=== PATIENT | male | born 1985 | race Two or more races ===

== ENCOUNTER 2016-10-02 08:50 | Emergency (ER) | payer OTHER ==
[~2016-10-02] VITALS: Ht 180.3 cm; Wt 86.2 kg
[~2016-10-02 08:50] MED LIST: CIPRO500 MG PO; METRONIDAZOLE250 MG PO; NKM; VICODIN 5-5001 EACH PO
[2016-10-02 08:54] VITALS: BP 134/88
[2016-10-02] MEDS ORDERED: ATIVAN0.5 MG ORAL (09:11)
[2016-10-02] MEDS ORDERED: LORazepam 1mg tab ORAL ONE (09:15)
--- NOTE | 2016-10-02 10:22 | Emergency Room Report ---
History of Present Illness General Chief Complaint: General Complaint Source: Patient Present Illness HPI 31YOM walk-in with "severe anxiety" for 2 days d/t "court dates, money issues." States "feels warm all over." Endorses abruptly stopping ETOH 5 days ago. used to drink multiple beers each day. Denies drug use. Denies other medical problems. Denies chest pain, SOB Denies other psych diagnoses. Denies SI, HI, AVH Allergies: Coded Allergies: No Known Allergies (Unverified , 03/01/12) Patient History Past Medical History: none Past Surgical History: none Pertinent Family History: none Social History: Denies: alcohol use, drug use, smoking Immunizations: UTD Reviewed Nursing Documentation: PMH: Agreed, PSxH: Agreed Nursing Documentation-PMH Past Medical History: No History, Except For History Of Psychiatric Problem: Yes - anxiety Review of Systems All Other Systems: negative except mentioned in HPI Physical Exam Vital Signs Date Time Temp Pulse Resp B/P Pulse Ox O2 Delivery O2 Flow Rate FiO2 10/02/16 08:54 97.5 76 20 134/88 98 Room Air Sp02 EP Interpretation: reviewed, normal General Appearance: normal inspection, well appearing, no apparent distress, alert, GCS 15, non-toxic Head: normocephalic, atraumatic Eyes: bilateral eye EOMI, bilateral eye PERRL ENT: normal ENT inspection, hearing grossly normal, normal voice Neck: normal inspection, full range of motion, supple, no bony tend Respiratory: normal inspection, lungs clear, normal breath sounds, no respiratory distress, no retraction, no wheezing Cardiovascular #1: regular rate, rhythm, no edema Gastrointestinal: normal inspection, normal bowel sounds, non tender, soft, no guarding, no hernia Genitourinary: no CVA tenderness Musculoskeletal: normal inspection, back normal, normal range of motion, Sandie' s Sign negative Neurologic: normal inspection, alert, oriented x3, responsive, certified industrial hygienist III-XII nml as tested, motor strength/tone normal, speech normal, other - No extremity tremors. No tongue fasiculations Psychiatric: normal inspection, judgement/insight normal, mood/affect normal Skin: normal inspection, normal color, no rash Medical Decision Making Diagnostic Impression: Primary Impression: Anxiety ER Course Anxiety - Undiagnosed Psych disorder? No SI, HI, AVH - possibly related to abrupt cessation of heavy ETOH - Had long discussion with patient on his need to followup with Psych - doesnt have PMD so was given outpatient [facility] walk-in info - Patient was given ativan here - stated his girlfriend was driving. Then RN told me he refused to take it, "felt scared" and said he was driving. Was DCed but then patient was seen in another room with his step-daughter who was also patient in ED, laughing, interacting, no acute distress - As such, very low suspicion for acute ETOH withdrawal at this time. In additional Vitals are stable. No tremors or fasiculations. No AMS. DC with short course of ativan Last Vital Signs Date Time Temp Pulse Resp B/P Pulse Ox O2 Delivery O2 Flow Rate FiO2 10/02/16 09:28 97.5 76 20 134/88 98 Room Air Status: improved Disposition: HOME, SELF-CARE Condition: Improved Scripts Lorazepam* (ATIVAN*) 0.5 Mg Tablet 0.5 MG ORAL BID for 7 Days, #14 TAB Prov: JUSTO BIRD M.D. 10/02/16 Referrals: NON PHYSICIAN (PCP) Patient Instructions: Panic Attacks, [id number], Alcohol Withdrawal Additional Instructions: - Take ativan up to twice a day as needed for anxiety, tremors, shaking - If tremors, anxiety get severe despite medication, go to nearest ER for treatment for withdrawal - Followup at walk-in Psych clinic at [place] JUSTO BIRD M.D. Oct 02, 2016 10:22
== END 2016-10-02 10:15 | disposition home or self-care (01) ==
LOC: EMR 09:28
DX: F41.9 Anxiety disorder, unspecified (principal); F10.10 Alcohol abuse, uncomplicated
CPT/HCPCS: 99283

== ENCOUNTER 2017-04-23 10:56 | Inpatient (IN) | payer MEDICAID, OTHER ==
[~2017-04-23] VITALS: Ht 180.3 cm; Wt 85.3 kg
[~2017-04-23 10:56] MED LIST changes: +ATIVAN0.5 MG ORAL
[2017-04-23] MEDS ORDERED: Lidocaine 2% Visc 15ml soln ORAL ONE (11:30)
[2017-04-23] MEDS ORDERED: Dicyclomine HCl 10mg/5ml oral soln ORAL ONE (11:30)
[2017-04-23 11:38] VITALS: BP 129/86
[2017-04-23 12:37] VITALS: BP 133/85
--- NOTE | 2017-04-23 13:17 | Diagnostic Imaging Report ---
Indication: Abdominal pain Technique: XRAY Abdomen 2v Comparison: Correlation made to CT of the abdomen and pelvis 03/01/2012. Findings: No definite evidence of free intraperitoneal air on upright view There is distention of multiple colonic loops with some measuring up to 7.5 cm in diameter. Somewhat tram tracking appearance along the wall of multiple colonic loops is noted and intramural gas/pneumatosis cannot entirely be excluded. No acute osseous abnormality seen. Impression: Abnormal distention of colonic loops with question of intramural gas/pneumatosis. Further evaluation with CT of the abdomen/pelvis is recommended. This was discussed with treating ER physician Dr. Ochoa at approximately 13:00 on 04/23/17.
[2017-04-23 14:24] LABS: APPEARANCE,URINE SLIGHTLY CLOUDY; BILIRUBIN, URINE NEGATIVE (NEGATIVE); GLUCOSE, URINE (UA) NEGATIVE (NEGATIVE); KETONES,URINE 4+ (NEGATIVE); LEUKOCYTE ESTERASE ,URINE 3+ (NEGATIVE); NITRITE,URINE NEGATIVE (NEGATIVE); PH,URINE 5 (4.5-8.0); PROTEIN,URINE 3+ (NEGATIVE); UROBILINOGEN,URINE NORMAL MG/DL (0.0-1.0)
[2017-04-23 14:34] LABS: COLOR,URINE YELLOW
[2017-04-23] MEDS ORDERED: Morphine Sulfate 4mg/ml Inj IVP ONE ×2 (14:45→18:00)
[2017-04-23] MEDS ORDERED: Ampicillin/Sulbactam Sod 3 GM in NS 110 ML IVPB ONE (15:15)
[2017-04-23 15:22] LABS: BASOPHILS % (AUTO) 0.3 % (0.0-2.0); EOSINOPHILS % (AUTO) 0.3 % (0.0-3.0); HEMATOCRIT 50.4 % (42.0-52.0); HEMOGLOBIN 17.4 G/DL (14.2-18.0); LYMPHOCYTES % (AUTO) 15.5 % (20.0-45.0); MEAN CORPUSCULAR VOLUME 93 FL (80-99); MONOCYTES % (AUTO) 4.6 % (1.0-10.0); NEUTROPHILS % (AUTO) 79.3 % (45.0-75.0); PLATELET COUNT 319 K/UL (150-450); RED BLOOD COUNT 5.44 M/UL (4.70-6.10); RED CELL DISTRIBUTION WIDTH 11.6 % (11.6-14.8); WHITE BLOOD COUNT 11.8 K/UL (4.8-10.8)
[2017-04-23 15:33] LABS: ANION GAP 14 mmol/L (5-15); BLOOD UREA NITROGEN 14 mg/dL (7-18); CALCIUM 9.6 MG/DL (8.5-10.1); CARBON DIOXIDE 24 MMOL/L (21-32); CHLORIDE 102 MMOL/L (98-107); CREATININE 0.9 MG/DL (0.55-1.30); POTASSIUM 3.8 MMOL/L (3.5-5.1); SODIUM 139 MMOL/L (136-145)
[2017-04-23] MEDS ORDERED: Unasyn 3gm Inj ONE (15:36)
[2017-04-23 15:38] LABS: ALANINE AMINOTRANSFERASE 27 U/L (12-78); ALBUMIN 4.2 G/DL (3.4-5.0); ALBUMIN/GLOBULIN RATIO 0.8 (1.0-2.7); ALKALINE PHOSPHATASE 103 U/L (46-116); ASPARTATE AMINO TRANSFERASE 24 U/L (15-37); BILIRUBIN,TOTAL 0.8 MG/DL (0.2-1.0)
--- NOTE | 2017-04-23 16:11 | Emergency Room Report ---
History of Present Illness General Chief Complaint: Abdominal Pain Source: Patient Present Illness HPI Patient is a 32-year-old male brought in by self after increased abdominal discomfort and distention. Patient was having increased gurgling sensation to his upper abdomen he reports having multiple episodes of vomiting. He reports having several small blood streaks in the emesis this morning. The patient had reportedly had a bowel movement this morning. He denied any bloody stool he reported having dark stool several weeks ago Allergies: Coded Allergies: ACETAMINOPHEN (Verified Allergy, Unknown, 04/23/17) Patient History Past Medical History: see triage record Reviewed Nursing Documentation: PMH: Agreed, PSxH: Agreed Nursing Documentation-PMH Past Medical History: No Stated History Review of Systems All Other Systems: negative except mentioned in HPI Physical Exam Vital Signs Date Time Temp Pulse Resp B/P (MAP) Pulse Ox O2 Delivery O2 Flow Rate FiO2 04/23/17 11:05 98.6 84 16 128/91 97 Room Air Sp02 EP Interpretation: reviewed, normal General Appearance: normal inspection, alert, GCS 15, moderate distress Head: atraumatic ENT: normal ENT inspection, hearing grossly normal, normal voice Neck: normal inspection, full range of motion, supple, no bony tend Respiratory: normal inspection, lungs clear, normal breath sounds, no respiratory distress, no retraction, no wheezing Cardiovascular #1: regular rate, rhythm, no edema Gastrointestinal: soft, distended Genitourinary: no CVA tenderness Musculoskeletal: normal inspection, back normal, normal range of motion Neurologic: normal inspection, alert, oriented x3, responsive, specialty foods cook III-XII nml as tested, motor strength/tone normal, speech normal Psychiatric: normal inspection, judgement/insight normal, mood/affect normal Skin: normal inspection, normal color, no rash Medical Decision Making Diagnostic Impression: Primary Impression: Abdominal pain Additional Impression: Bowel obstruction ER Course Patient presented for abdominal pain. Differential diagnoses included ischemic bowel, appendicitis, perforated viscus, abdominal aortic aneurysm, inferior myocardial infarction, viral gastroenteritis Because of complexity of patient's case laboratory testing and imaging studies were ordered.Laboratory testing showed normal white blood count. Patient was noted to have abdominal series with possible bowel obstruction and possible intestinal pneumatosis. CT the abdomen pelvis was ordered. Dr. Rodo Dockery was contacted for inpatient management. Dr. Salinas was contacted for inpatient surgical consult. Labs Test 04/23/17 11:24 White Blood Count 11.8 K/UL (4.8-10.8) Red Blood Count 5.44 M/UL (4.70-6.10) Hemoglobin 17.4 G/DL (14.2-18.0) Hematocrit 50.4 % (42.0-52.0) Mean Corpuscular Volume 93 FL (80-99) Mean Corpuscular Hemoglobin 32.1 PG (27.0-31.0) Mean Corpuscular Hemoglobin Concent 34.6 G/DL (32.0-36.0) Red Cell Distribution Width 11.6 % (11.6-14.8) Platelet Count 319 K/UL (150-450) Mean Platelet Volume 6.9 FL (6.5-10.1) Neutrophils (%) (Auto) 79.3 % (45.0-75.0) Lymphocytes (%) (Auto) 15.5 % (20.0-45.0) Monocytes (%) (Auto) 4.6 % (1.0-10.0) Eosinophils (%) (Auto) 0.3 % (0.0-3.0) Basophils (%) (Auto) 0.3 % (0.0-2.0) Prothrombin Time 10.2 SEC (9.30-11.50) Prothromb Time International Ratio 1.0 (0.9-1.1) Activated Partial Thromboplast Time 28 SEC (23-33) Urine Color Yellow Urine Appearance Slightly cloudy Urine pH 5 (4.5-8.0) Urine Specific [place] 1.025 (1.005-1.035) Urine Protein 3+ (NEGATIVE) Urine Glucose (UA) Negative (NEGATIVE) Urine Ketones 4+ (NEGATIVE) Urine Occult Blood 5+ (NEGATIVE) Urine Nitrite Negative (NEGATIVE) Urine Bilirubin Negative (NEGATIVE) Urine Urobilinogen Normal MG/DL (0.0-1.0) Urine Leukocyte Esterase 3+ (NEGATIVE) Urine RBC 5-10 /HPF (0 - 0) Urine WBC 40-60 /HPF (0 - 0) Urine Squamous Epithelial Cells Occasional /LPF Urine Bacteria Few /HPF (NONE) Sodium Level 139 MMOL/L (136-145) Potassium Level 3.8 MMOL/L (3.5-5.1) Chloride Level 102 MMOL/L (98-107) Carbon Dioxide Level 24 MMOL/L (21-32) Anion Gap 14 mmol/L (5-15) Blood Urea Nitrogen 14 mg/dL (7-18) Creatinine 0.9 MG/DL (0.55-1.30) Estimat Glomerular Filtration Rate > 60 mL/min (>60) Glucose Level 101 MG/DL (74-106) Calcium Level 9.6 MG/DL (8.5-10.1) Total Bilirubin 0.8 MG/DL (0.2-1.0) Aspartate Amino Transf (AST/SGOT) 24 U/L (15-37) Alanine Aminotransferase (ALT/SGPT) 27 U/L (12-78) Alkaline Phosphatase 103 U/L (46-116) Troponin I 0.000 ng/mL (0.000-0.056) Total Protein 9.7 G/DL (6.4-8.2) Albumin 4.2 G/DL (3.4-5.0) Globulin 5.5 g/dL Albumin/Globulin Ratio 0.8 (1.0-2.7) Lipase 123 U/L (73-393) Urine Opiates Screen Negative (NEGATIVE) Urine Barbiturates Screen Negative (NEGATIVE) Phencyclidine (PCP) Screen Negative (NEGATIVE) Urine Amphetamines Screen Negative (NEGATIVE) Urine Benzodiazepines Screen Negative (NEGATIVE) Urine Cocaine Screen Negative (NEGATIVE) Urine Marijuana (THC) Screen Negative (NEGATIVE) Last Vital Signs Date Time Temp Pulse Resp B/P (MAP) Pulse Ox O2 Delivery O2 Flow Rate FiO2 04/23/17 12:37 72 16 133/85 100 Room Air 04/23/17 11:05 98.6 Status: unchanged Disposition: ADMITTED INPATIENT Condition: Serious Referrals: NOT CHOSEN IPA/,REFERRING (PCP) Phillip Ochoa Apr 23, 2017 16:11
--- NOTE | 2017-04-23 16:46 | Consultation ---
History of Present Illness General Date patient seen: Apr 23, 2017 Chief Complaint: Abdominal Pain Reason for Consultation: abd pain Present Illness HPI 32M otherwise healthy began to note some vague abdominal cramping 1-2 weeks ago. states he had intermittent cramping and would note some intermittent abdominal distention, flatus, and bowel sounds as it would resolved. cramping acutely worsened 1-2 days ago and was associated with nausea and blood tinged emesis. acute pain described as 9/10 cramping generalized pain without radiation. does note distention. has been having lots of foul smelling flatus and diarrhea since onset. came to ED for evaluation. KUB performed and demonstrated bowel distention. CT ordered. labs okay. Allergies: Coded Allergies: ACETAMINOPHEN (Verified Allergy, Unknown, 04/23/17) Medication History Scheduled Ciprofloxacin* (Cipro*), 500 MG PO BID Hydrocodone/Acetaminophen 5-500 (Vicodin 5-500), 1 TAB PO Q8H Lorazepam* (Ativan*), 0.5 MG ORAL BID Metronidazole* (Flagyl*), 250 MG PO TID No Known Medications* (NKM - No Known Medications*), 0 ., (Reported) No Known Medications* (NKM - No Known Medications*), 0 ., (Reported) Patient History History Provided By: Patient Healthcare decision maker Resuscitation status Advanced Directive on File Past Medical/Surgical History Past Medical/Surgical History: (1) Anxiety (2) Bowel obstruction (3) Abdominal pain Review of Systems Constitutional: Denies: no symptoms, see HPI, chills, sweats, fever, malaise, weakness, other Eye: Denies: no symptoms, see HPI, eye pain, blurred vision, tearing, double vision, nose pain, nose congestion, acuity changes, discharge, other ENT: Denies: no symptoms, see HPI, ear pain, ear discharge, nose pain, nose congestion, throat pain, throat swelling, mouth pain, hearing loss, nasal discharge, other Cardiovascular: Denies: no symptoms, see HPI, chest pain, edema, palpitations, syncope, PND, other Gastrointestinal: Reports: abdominal pain, diarrhea, nausea, vomiting Genitourinary: Denies: no symptoms, see HPI, discharge, dysuria, frequency, hematuria, pain, retention, incontinence, urgency, vag bleed/dc, other Musculoskeletal: Denies: no symptoms, see HPI, back pain, gout, joint pain, joint swelling, muscle pain, muscle stiffness, other Skin: Denies: no symptoms, see HPI, rash, change in color, change in hair/nails , dryness, lesions, other Psychiatric: Denies: no symptoms, see HPI, prior hx, anxiety, depressed feelings, emotional problems, SI, HI, hallucinations, other Neurological: Denies: no symptoms, see HPI, headache, numbness, paresthesia, seizure, tingling, tremors, focal weakness, syncope, dizziness, other Endocrine: Denies: no symptoms, see HPI, excessive sweating, flushing, intolerance to temperature, increased thirst, increased urine, unexplained weight loss, other Hematologic/Lymphatic: Denies: no symptoms, see HPI, anemia, blood clots, easy bleeding, easy bruising, swollen glands, diathesis, other Physical Exam General Appearance: WD/WN, no apparent distress, alert Lines, tubes and drains: peripheral HEENT: normocephalic, atraumatic, mucous membranes moist, PERRL Neck: supple, normal inspection Respiratory/Chest: lungs clear, normal breath sounds, no respiratory distress, no accessory muscle use Cardiovascular/Chest: normal peripheral pulses, normal rate, regular rhythm Abdomen: normal bowel sounds, soft, no organomegaly, no mass, distended, tender , other - soft, distended, minimal tenderess described as discomfort, no rebound , no guarding, no hernias. Extremities: normal inspection Skin Exam: normal pigmentation, warm/dry Neurologic: alert, oriented x 3, responsive Last 24 Hour Vital Signs Date Time Temp Pulse Resp B/P (MAP) Pulse Ox O2 Delivery O2 Flow Rate FiO2 04/23/17 12:37 72 16 133/85 100 Room Air 04/23/17 11:38 78 27 129/86 98 Room Air 04/23/17 11:05 98.6 84 16 128/91 97 Room Air Laboratory Tests Test 04/23/17 11:24 White Blood Count 11.8 K/UL (4.8-10.8) H Red Blood Count 5.44 M/UL (4.70-6.10) Hemoglobin 17.4 G/DL (14.2-18.0) Hematocrit 50.4 % (42.0-52.0) Mean Corpuscular Volume 93 FL (80-99) Mean Corpuscular Hemoglobin 32.1 PG (27.0-31.0) H Mean Corpuscular Hemoglobin Concent 34.6 G/DL (32.0-36.0) Red Cell Distribution Width 11.6 % (11.6-14.8) Platelet Count 319 K/UL (150-450) Mean Platelet Volume 6.9 FL (6.5-10.1) Neutrophils (%) (Auto) 79.3 % (45.0-75.0) H Lymphocytes (%) (Auto) 15.5 % (20.0-45.0) L Monocytes (%) (Auto) 4.6 % (1.0-10.0) Eosinophils (%) (Auto) 0.3 % (0.0-3.0) Basophils (%) (Auto) 0.3 % (0.0-2.0) Prothrombin Time 10.2 SEC (9.30-11.50) Prothromb Time International Ratio 1.0 (0.9-1.1) Activated Partial Thromboplast Time 28 SEC (23-33) Urine Color Yellow Urine Appearance Slightly cloudy Urine pH 5 (4.5-8.0) Urine Specific [place] 1.025 (1.005-1.035) Urine Protein 3+ (NEGATIVE) H Urine Glucose (UA) Negative (NEGATIVE) Urine Ketones 4+ (NEGATIVE) H Urine Occult Blood 5+ (NEGATIVE) H Urine Nitrite Negative (NEGATIVE) Urine Bilirubin Negative (NEGATIVE) Urine Urobilinogen Normal MG/DL (0.0-1.0) Urine Leukocyte Esterase 3+ (NEGATIVE) H Urine RBC 5-10 /HPF (0 - 0) H Urine WBC 40-60 /HPF (0 - 0) H Urine Squamous Epithelial Cells Occasional /LPF Urine Bacteria Few /HPF (NONE) Sodium Level 139 MMOL/L (136-145) Potassium Level 3.8 MMOL/L (3.5-5.1) Chloride Level 102 MMOL/L (98-107) Carbon Dioxide Level 24 MMOL/L (21-32) Anion Gap 14 mmol/L (5-15) Blood Urea Nitrogen 14 mg/dL (7-18) Creatinine 0.9 MG/DL (0.55-1.30) Estimat Glomerular Filtration Rate > 60 mL/min (>60) Glucose Level 101 MG/DL (74-106) Calcium Level 9.6 MG/DL (8.5-10.1) Total Bilirubin 0.8 MG/DL (0.2-1.0) Aspartate Amino Transf (AST/SGOT) 24 U/L (15-37) Alanine Aminotransferase (ALT/SGPT) 27 U/L (12-78) Alkaline Phosphatase 103 U/L (46-116) Troponin I 0.000 ng/mL (0.000-0.056) Total Protein 9.7 G/DL (6.4-8.2) H Albumin 4.2 G/DL (3.4-5.0) Globulin 5.5 g/dL Albumin/Globulin Ratio 0.8 (1.0-2.7) L Lipase 123 U/L (73-393) Urine Opiates Screen Negative (NEGATIVE) Urine Barbiturates Screen Negative (NEGATIVE) Phencyclidine (PCP) Screen Negative (NEGATIVE) Urine Amphetamines Screen Negative (NEGATIVE) Urine Benzodiazepines Screen Negative (NEGATIVE) Urine Cocaine Screen Negative (NEGATIVE) Urine Marijuana (THC) Screen Negative (NEGATIVE) Height (Feet): 5 Height (Inches): 11.00 Weight (Pounds): 188 Assessment/Plan Problem List: (1) Abdominal pain Assessment & Plan: 32M with abdominal pain, nausea, emesis, diarrhea. afebrile , HD stable, labs okay. on exam distended with some mild cramping discomfort but no acute abdomen. KUB reviewed. CT ordered. possible colitis, enteritis, bowel obstruction, intussusception, or even volvulus. currently stable -pending final CT read -npo -iv fluids -iv abx -trend labs -will follow with recs -thank you for this consultation. ICD Codes: R10.9 - Unspecified abdominal pain SNOMED: [id number] Qualifiers: Qualified Codes: R10.84 - Generalized abdominal pain Status: stable BradHany Apr 23, 2017 16:45
[2017-04-23 17:36] VITALS: BP 132/85
[2017-04-23 19:45] VITALS: BP 128/90
[2017-04-23] MEDS ORDERED: Morphine Sulfate 4mg/ml Inj IVP PRN (20:15)
[2017-04-23] MEDS: D5 1/2NS w/KCl 30mEq 1000ml 1,000 ML IV SCH (20:33)
[2017-04-23] MEDS: Morphine Sulfate 10mg/ml Inj IVP PRN (20:34)
[2017-04-23] MEDS: Heparin 5000 units/ml inj SUBQ SCH (21:00)
[2017-04-24] VITALS (10 sets, daily range): BP systolic 99–127; BP diastolic 55–85
[2017-04-24] MEDS: D5 1/2NS w/KCl 30mEq 1000ml 1,000 ML IV SCH ×4 (03:26→21:30)
[2017-04-24] MEDS: Morphine Sulfate 10mg/ml Inj IVP PRN (03:27)
[2017-04-24] MEDS ORDERED: Propofol 200mg/20ml IV ONE (09:00)
[2017-04-24] MEDS ORDERED: NS 500ML ONE (09:00)
[2017-04-24] MEDS ORDERED: Lidocaine 1% MPF 10mg/ml 5ml ONE (09:00)
[2017-04-24] MEDS: Heparin 5000 units/ml inj SUBQ SCH ×2 (09:25→21:29)
[2017-04-24 10:13] LABS: BASOPHILS % (AUTO) 0.8 % (0.0-2.0); EOSINOPHILS % (AUTO) 0.2 % (0.0-3.0); HEMOGLOBIN 15.6 G/DL (14.2-18.0); LYMPHOCYTES % (AUTO) 18.5 % (20.0-45.0); MEAN CORPUSCULAR VOLUME 93 FL (80-99); MONOCYTES % (AUTO) 9.3 % (1.0-10.0); NEUTROPHILS % (AUTO) 71.3 % (45.0-75.0); PLATELET COUNT 326 K/UL (150-450); RED BLOOD COUNT 4.74 M/UL (4.70-6.10); RED CELL DISTRIBUTION WIDTH 11.6 % (11.6-14.8); WHITE BLOOD COUNT 11.2 K/UL (4.8-10.8)
--- NOTE | 2017-04-24 10:20 | Anethesia Preoperative Eval ---
Anesthesia Pre-op PMH/ROS General Date of Evaluation: Apr 24, 2017 Time of Evaluation: 10:17 Anesthesiologist: tiffanie ASA Score: ASA 2 Mallampati Score Class I : Soft palate, uvula, fauces, pillars visible Class II: Soft palate, uvula, fauces visible Class III: Soft palate, base of uvula visible Class IV: Only hard plate visible Mallampati Classification: Class II Surgeon: harinder Surgical Procedure: flexible sigmoidoscopy Anesthesia History: none Social History: current smoker Family History: no anesthesia problems Allergies: Coded Allergies: ACETAMINOPHEN (Verified Allergy, Unknown, 04/23/17) Medications: see eMAR Anesthesia Pre-op Phys. Exam Physician Exam Last Vital Signs Date Time Temp Pulse Resp B/P (MAP) Pulse Ox O2 Delivery O2 Flow Rate FiO2 04/24/17 08:00 97.3 63 18 112/71 97 04/24/17 04:52 Room Air Constitutional: NAD Neurologic: CN 2-12 intact Cardiovascular: RRR Respiratory: CTA Gastrointestinal: S/NT/ND Airway Exam Mallampati Score: Class II MO: full Neck: supple TMD: 2fb ROM: full Teeth: broken Anesthesia Pre-op A/P Labs Hematology Test 04/23/17 11:24 04/24/17 09:30 White Blood Count 11.8 K/UL (4.8-10.8) H 11.2 K/UL (4.8-10.8) H Red Blood Count 5.44 M/UL (4.70-6.10) 4.74 M/UL (4.70-6.10) Hemoglobin 17.4 G/DL (14.2-18.0) 15.6 G/DL (14.2-18.0) Hematocrit 50.4 % (42.0-52.0) 44.0 % (42.0-52.0) Mean Corpuscular Volume 93 FL (80-99) 93 FL (80-99) Mean Corpuscular Hemoglobin 32.1 PG (27.0-31.0) H 32.9 PG (27.0-31.0) H Mean Corpuscular Hemoglobin Concent 34.6 G/DL (32.0-36.0) 35.5 G/DL (32.0-36.0) Red Cell Distribution Width 11.6 % (11.6-14.8) 11.6 % (11.6-14.8) Platelet Count 319 K/UL (150-450) 326 K/UL (150-450) Mean Platelet Volume 6.9 FL (6.5-10.1) 7.4 FL (6.5-10.1) Neutrophils (%) (Auto) 79.3 % (45.0-75.0) H 71.3 % (45.0-75.0) Lymphocytes (%) (Auto) 15.5 % (20.0-45.0) L 18.5 % (20.0-45.0) L Monocytes (%) (Auto) 4.6 % (1.0-10.0) 9.3 % (1.0-10.0) Eosinophils (%) (Auto) 0.3 % (0.0-3.0) 0.2 % (0.0-3.0) Basophils (%) (Auto) 0.3 % (0.0-2.0) 0.8 % (0.0-2.0) Coagulation Test 04/23/17 11:24 Prothrombin Time 10.2 SEC (9.30-11.50) Prothromb Time International Ratio 1.0 (0.9-1.1) Activated Partial Thromboplast Time 28 SEC (23-33) Chemistry Test 04/23/17 11:24 04/24/17 09:30 Sodium Level 139 MMOL/L (136-145) Pending Potassium Level 3.8 MMOL/L (3.5-5.1) Pending Chloride Level 102 MMOL/L (98-107) Pending Carbon Dioxide Level 24 MMOL/L (21-32) Pending Anion Gap 14 mmol/L (5-15) Blood Urea Nitrogen 14 mg/dL (7-18) Pending Creatinine 0.9 MG/DL (0.55-1.30) Pending Estimat Glomerular Filtration Rate > 60 mL/min (>60) Pending Glucose Level 101 MG/DL (74-106) Pending Calcium Level 9.6 MG/DL (8.5-10.1) Pending Total Bilirubin 0.8 MG/DL (0.2-1.0) Pending Aspartate Amino Transf (AST/SGOT) 24 U/L (15-37) Pending Alanine Aminotransferase (ALT/SGPT) 27 U/L (12-78) Pending Alkaline Phosphatase 103 U/L (46-116) Pending Troponin I 0.000 ng/mL (0.000-0.056) Total Protein 9.7 G/DL (6.4-8.2) H Pending Albumin 4.2 G/DL (3.4-5.0) Pending Globulin 5.5 g/dL Pending Albumin/Globulin Ratio 0.8 (1.0-2.7) L Lipase 123 U/L (73-393) Risk Assessment & Plan Assessment: asa2 Plan: mac Status Change Before Surgery: No Pre-Antibiotics Drug: YANCI Leung Apr 24, 2017 10:20
[2017-04-24] MEDS ORDERED: fentaNYL 100 mcg/2 mL IV PRN (10:30)
[2017-04-24] MEDS ORDERED: Midazolam 2mg/2ml Inj IVP PRN (10:30)
[2017-04-24] MEDS ORDERED: DiphenhydrAMINE 50mg/ml Inj IVP PRN (10:30)
[2017-04-24] MEDS ORDERED: Atropine Inj 1mg/10ml Syr IV PRN (10:30)
[2017-04-24 10:39] LABS: ALANINE AMINOTRANSFERASE 14 U/L (12-78); ALBUMIN 3.4 G/DL (3.4-5.0); ALBUMIN/GLOBULIN RATIO 0.7 (1.0-2.7); ALKALINE PHOSPHATASE 80 U/L (46-116); ANION GAP 8 mmol/L (5-15); ASPARTATE AMINO TRANSFERASE 16 U/L (15-37); BILIRUBIN,TOTAL 0.6 MG/DL (0.2-1.0); BLOOD UREA NITROGEN 10 mg/dL (7-18); CALCIUM 8.8 MG/DL (8.5-10.1); CARBON DIOXIDE 26 MMOL/L (21-32); CHLORIDE 105 MMOL/L (98-107); POTASSIUM 4.1 MMOL/L (3.5-5.1); SODIUM 139 MMOL/L (136-145)
--- NOTE | 2017-04-24 10:39 | Diagnostic Imaging Report ---
Indication: Elbow pain Technique: CT of the abdomen and pelvis utilizing automated exposure control with intravenous contrast. Venous scanning performed. CT dose: Total DLP 803.09 mGycm; CTDI vol 13.68 mGy Comparison: 03/01/2012 Findings: Dependent atelectasis noted in the lung bases. Heart size within normal limits. No pericardial effusion. Liver and gallbladder are unremarkable in appearance. Hepatic veins and portal veins appear patent. No evidence of portal venous gas. Spleen, adrenal glands and pancreas are unremarkable in appearance. Kidneys enhance symmetrically. No urinary tract stones or hydronephrosis noted bilaterally. Prostate is unremarkable in appearance. There is focal thickening about the superior aspect of the bladder with possible fistulous connection to the colon (series 6 image #37; series 5 images #27). The area of thickening measures approximately 3.5 x 1.2 cm (series 6 image #36). There is no free intraperitoneal air or fluid. There is marked distention of the colon to the level of the rectosigmoid colon where there is focal thickening (series 3 image #78). Appearance raises question for intussusception however mass lesion or other causes of focal thickening are not entirely excludable. The rectum distal to this point is collapsed and of normal caliber. There is no evidence of pneumatosis intestinalis. There is no definite perienteric inflammatory change at this time. There is somewhat fatty contents of stool which may be related to diarrhea or malabsorptive syndrome. There is no small bowel dilatation. Appendix is normal. Abdominal aorta is normal in caliber. No pathologically enlarged abdominal or pelvic lymph nodes are noted. There is an minimal degenerative change of the lumbar spine at L4-L5. No acute osseous abnormality is seen. IMPRESSION: Colonic obstruction to the level of focal thickening at the rectosigmoid colon which may be related to intussusception. Underlying mass lesion or additional etiologies (infectious or inflammatory) for focal thickening not entirely excluded, particularly given the possible fistulous connection to the bladder. Recommend direct visualization with sigmoidoscopy/colonoscopy. No evidence of pneumatosis intestinalis, portal venous gas, or free air at this time. No associated small bowel dilatation/obstruction. Appendix normal. Focal thickening of the bladder which may be secondary to inflammation versus cystitis. Question possible fistulous connection to the colon as detailed above. Given the thickening is focal, the possibility of mass is not entirely excluded. Consider cystogram or cystoscopy. Additional findings as above. This corresponds with the [facility]rad preliminary report. Findings discussed with Dr. Negor of 04/24/2017. The CT scanner at [facility] is accredited by the [employer] [place] [employer] and the scans are performed using protocols designed to limit radiation exposure to as low as reasonably achievable to attain images of sufficient resolution adequate for diagnostic evaluation.
[2017-04-24] MEDS ORDERED: NS 500ML IV ONE (11:19)
--- NOTE | 2017-04-24 11:19 | General Progress Note ---
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 inflammatoy process, ? recto-vesicular fistula - UTI vs fistula Recommendations - NPO - flex sig - may need cystogram - abx - surgical f/u Subjective Allergies: Coded Allergies: ACETAMINOPHEN (Verified Allergy, Unknown, 04/23/17) Objective Last 24 Hour Vital Signs Date Time Temp Pulse Resp B/P (MAP) Pulse Ox O2 Delivery O2 Flow Rate FiO2 04/24/17 08:00 97.3 63 18 112/71 97 04/24/17 04:52 98.2 63 18 127/73 100 Room Air 04/24/17 00:51 98.0 69 19 105/60 100 Room Air 04/23/17 19:45 98.2 73 20 128/90 100 Room Air 04/23/17 18:23 98.6 74 20 132/85 97 Room Air 04/23/17 17:36 74 20 132/85 97 Room Air 04/23/17 12:37 72 16 133/85 100 Room Air 04/23/17 11:38 78 27 129/86 98 Room Air Intake and Output 04/23/17 04/24/17 19:00 07:00 Intake Total 1000 ml 1500 ml Balance 1000 ml 1500 ml Intake IV Total 1000 ml 1500 ml # Voids 1 2 Laboratory Tests 04/23/17 11:24: White Blood Count 11.8H, Red Blood Count 5.44, Hemoglobin 17.4, Hematocrit 50.4 , Mean Corpuscular Volume 93, Mean Corpuscular Hemoglobin 32.1H, Mean Corpuscular Hemoglobin Concent 34.6, Red Cell Distribution Width 11.6, Platelet Count 319, Mean Platelet Volume 6.9, Neutrophils (%) (Auto) 79.3H, Lymphocytes ( %) (Auto) 15.5L, Monocytes (%) (Auto) 4.6, Eosinophils (%) (Auto) 0.3, Basophils (%) (Auto) 0.3, Prothrombin Time 10.2, Prothromb Time International Ratio 1.0, Activated Partial Thromboplast Time 28, Urine Color Yellow, Urine Appearance Slightly cloudy, Urine pH 5, Urine Specific Rougon 1.025, Urine Protein 3+H, Urine Glucose (UA) Negative, Urine Ketones 4+H, Urine Occult Blood 5+H, Urine Nitrite Negative, Urine Bilirubin Negative, Urine Urobilinogen Normal , Urine Leukocyte Esterase 3+H, Urine RBC 5-10H, Urine WBC 40-60H, Urine Squamous Epithelial Cells Occasional, Urine Bacteria Few, Sodium Level 139, Potassium Level 3.8, Chloride Level 102, Carbon Dioxide Level 24, Anion Gap 14, Blood Urea Nitrogen 14, Creatinine 0.9, Estimat Glomerular Filtration Rate > 60 , Glucose Level 101, Calcium Level 9.6, Total Bilirubin 0.8, Aspartate Amino Transf (AST/SGOT) 24, Alanine Aminotransferase (ALT/SGPT) 27, Alkaline Phosphatase 103, Troponin I 0.000, Total Protein 9.7H, Albumin 4.2, Globulin 5.5 , Albumin/Globulin Ratio 0.8L, Lipase 123, Urine Opiates Screen Negative, Urine Barbiturates Screen Negative, Phencyclidine (PCP) Screen Negative, Urine Amphetamines Screen Negative, Urine Benzodiazepines Screen Negative, Urine Cocaine Screen Negative, Urine Marijuana (THC) Screen Negative 04/24/17 09:30: White Blood Count 11.2H, Red Blood Count 4.74, Hemoglobin 15.6, Hematocrit 44.0 , Mean Corpuscular Volume 93, Mean Corpuscular Hemoglobin 32.9H, Mean Corpuscular Hemoglobin Concent 35.5, Red Cell Distribution Width 11.6, Platelet Count 326, Mean Platelet Volume 7.4, Neutrophils (%) (Auto) 71.3, Lymphocytes (% ) (Auto) 18.5L, Monocytes (%) (Auto) 9.3, Eosinophils (%) (Auto) 0.2, Basophils (%) (Auto) 0.8, Sodium Level 139, Potassium Level 4.1, Chloride Level 105, Carbon Dioxide Level 26, Anion Gap 8, Blood Urea Nitrogen 10, Creatinine 1.0, Estimat Glomerular Filtration Rate > 60, Glucose Level 126H, Calcium Level 8.8, Total Bilirubin 0.6, Aspartate Amino Transf (AST/SGOT) 16, Alanine Aminotransferase (ALT/SGPT) 14, Alkaline Phosphatase 80, Total Protein 8.1, Albumin 3.4, Globulin 4.7, Albumin/Globulin Ratio 0.7L Height (Feet): 5 Height (Inches): 11.00 Weight (Pounds): 188 PATRICIOPARIS TSAI Apr 24, 2017 11:19
--- NOTE | 2017-04-24 11:22 | Pre-Procedure Note/Attestation ---
Pre-Procedure Note/Attestation Complete Prior to Procedure Planned Procedure: not applicable Procedure Narrative: flex sig Indications for Procedure Pre-Operative Diagnosis: abnormal CT, abd pain Attestation I attest that I discussed the nature of the procedure; its benefits; risks and complications; and alternatives (and the risks and benefits of such alternatives ), prior to the procedure, with the patient (or the patient's legal loss control representative). I attest that, if there was a reasonable possibility of needing a blood transfusion, the patient (or the patient's legal loss control representative) was given the [facility] standardized written summary, pursuant to the Dwight Bertrand Blood Safety Act ([place] Health and Safety Code # 1645, as amended). I attest that I re-evaluated the patient just prior to the surgery and that there has been no change in the patient's H&P, except as documented below: PARIS RAY Apr 24, 2017 11:22
--- NOTE | 2017-04-24 12:19 | General Progress Note ---
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 inflammatoy process, ? recto-vesicular fistula - UTI vs fistula Recommendations - NPO - flex sig - may need cystogram - abx - surgical f/u Post Procedure: - Sigmoidoscopy to about 30 cm - Difficult exam due to significant anatomical distortion - abrupt "twisted" closure of colonic lumen at this level. Unable to pass. - one possibly ulcerated nodule seen in area of abrupt closure - biopsied ( difficult to reach for biopsy) - Rec: - f/u path (stat result requested) - if path negative --> cytogram vs limited GGE to evaluate the area - Keep NPO - Broad spect abx (Zosyn written) - Surgical f/u Subjective Allergies: Coded Allergies: ACETAMINOPHEN (Verified Allergy, Unknown, 04/23/17) Objective Last 24 Hour Vital Signs Date Time Temp Pulse Resp B/P (MAP) Pulse Ox O2 Delivery O2 Flow Rate FiO2 04/24/17 08:00 97.3 63 18 112/71 97 04/24/17 04:52 98.2 63 18 127/73 100 Room Air 04/24/17 00:51 98.0 69 19 105/60 100 Room Air 04/23/17 19:45 98.2 73 20 128/90 100 Room Air 04/23/17 18:23 98.6 74 20 132/85 97 Room Air 04/23/17 17:36 74 20 132/85 97 Room Air 04/23/17 12:37 72 16 133/85 100 Room Air Intake and Output 04/23/17 04/24/17 19:00 07:00 Intake Total 1000 ml 1500 ml Balance 1000 ml 1500 ml Intake IV Total 1000 ml 1500 ml # Voids 1 2 Laboratory Tests 04/24/17 09:30: White Blood Count 11.2H, Red Blood Count 4.74, Hemoglobin 15.6, Hematocrit 44.0 , Mean Corpuscular Volume 93, Mean Corpuscular Hemoglobin 32.9H, Mean Corpuscular Hemoglobin Concent 35.5, Red Cell Distribution Width 11.6, Platelet Count 326, Mean Platelet Volume 7.4, Neutrophils (%) (Auto) 71.3, Lymphocytes (% ) (Auto) 18.5L, Monocytes (%) (Auto) 9.3, Eosinophils (%) (Auto) 0.2, Basophils (%) (Auto) 0.8, Sodium Level 139, Potassium Level 4.1, Chloride Level 105, Carbon Dioxide Level 26, Anion Gap 8, Blood Urea Nitrogen 10, Creatinine 1.0, Estimat Glomerular Filtration Rate > 60, Glucose Level 126H, Calcium Level 8.8, Total Bilirubin 0.6, Aspartate Amino Transf (AST/SGOT) 16, Alanine Aminotransferase (ALT/SGPT) 14, Alkaline Phosphatase 80, Total Protein 8.1, Albumin 3.4, Globulin 4.7, Albumin/Globulin Ratio 0.7L Height (Feet): 5 Height (Inches): 11.00 Weight (Pounds): 188 PARIS RAY Apr 24, 2017 12:19
--- NOTE | 2017-04-24 12:27 | Immediate Post-Op Evaluation ---
Immediate Post-Op Evalulation Immediate Post-Op Evalulation Procedure: flexible sigmoidoscopy w/ bx Date of Evaluation: Apr 24, 2017 Time of Evaluation: 12:27 IV Fluids: 450ml 0.9ns Blood Products: none Estimated Blood Loss: negligible Blood Pressure Systolic: 101 Blood Pressure Diastolic: 57 Pulse Rate: 63 Respiratory Rate: 18 O2 Sat by Pulse Oximetry: 100 Temperature (Fahrenheit): 98.5 Pain Score (1-10): 0 Nausea: No Vomiting: No Complications none Patient Status: awake, reacts, patent Hydration Status: adequate Drug: YANCI Leung Apr 24, 2017 12:27
--- NOTE | 2017-04-24 12:29 | 48 Hour Post Anesthesia Eval ---
Post Anesthesia Evaluation Procedure: flexible sigmoidoscopy w/ bx Date of Evaluation: Apr 24, 2017 Time of Evaluation: 12:29 Blood Pressure Systolic: 110 0: 73 Pulse Rate: 54 Respiratory Rate: 18 Temperature (Fahrenheit): 98.5 O2 Sat by Pulse Oximetry: 100 Airway: patent Nausea: No Vomiting: No Pain Intensity: 0 Hydration Status: adequate Cardiopulmonary Status: stable Mental Status/LOC: patient returned to baseline Post-Anesthesia Complications: none Follow-up care needed: N/A YANCI SEO Apr 24, 2017 12:29
--- NOTE | 2017-04-24 12:30 | History and Physical Report ---
DATE OF ADMISSION: 04/23/2017 CHIEF COMPLAINT AND REASON FOR HOSPITALIZATION: The patient was admitted with abdominal pain, nausea, and vomiting. HISTORY OF PRESENT ILLNESS: The patient is a 32-year-old man who presents with abdominal pain nausea, and, vomiting. He is seen in the emergency room with the above signs and showed markedly distended loops of colon on KUB with intramural gas and pneumatosis. A CT is pending at the time of my exam. The patient about two weeks ago passed black stool. He has had abdominal pain and gas for the past several weeks. He had diarrhea for the past day and today, he has had nausea, vomiting, and some hematemesis. The patient has not been treated in the past for any bowel problem. Initially, had been in good health. He did have an emergency room visit for anxiety in September 2016. PAST SURGICAL HISTORY: None. MEDICATIONS: No regular medications. He took Mylanta within the last 24 hours. ALLERGIES: None known. SOCIAL HISTORY: He is here with his significant other. 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 Habits, he used marijuana, he says he quit five months ago. Smokes on and off, but not regularly. He was a moderate alcohol drinker, but now says he drinks about 1/6 pack a day at weekends. REVIEW OF SYSTEMS: HEAD EYES, EARS, NOSE, AND THROAT: Vision and hearing are good. ENDOCRINE: No known diabetes or thyroid disease. PULMONARY: No asthma, TB, or chronic cough. CARDIAC: No history of myocardial infarction or palpitations. GASTROINTESTINAL: No known history of ulcers or bowel problems or GI bleeding in the past. Black stools as noted above. GENITOURINARY: He has had dysuria who admittedly within on the last 24 to 48 hours. No known kidney stones. MUSCULOSKELETAL: No history of chronic joint pains. NEUROLOGIC: No CVA, syncope, or seizures. PHYSICAL EXAMINATION: GENERAL: The patient is alert, well-developed man, in no acute distress. VITAL SIGNS: Blood pressure is 133/85, pulse 72, respirations 16, temperature 98.6. HEAD EYES, EARS, NOSE, AND THROAT: Sclerae are nonicteric. Ocular motions intact in all directions. Oral mucosa moist. NECK: No adenopathy or thyroid enlargement. LUNGS: Clear. HEART: Regular rhythm. No murmur. ABDOMEN: Soft and mildly distended. Bowel sounds are diminished. I am unable to see liver or spleen. There is no focal tenderness. EXTREMITIES: No edema, cyanosis, clubbing, or swollen joints. IMPRESSION: The patient presents with large loops of gas-filled colon on KUB and symptoms as above. It is possible that he has an underlying bowel problems or ileus versus bowel obstruction. It is possible he could have underlying inflammatory bowel disease or other source of colitis. It is also he may have underlying megacolon and atonic bowels, although he does not give a history of chronic constipation. There is also a recent history of black stools and he could have underlying peptic ulcer disease. PLAN: We will await the CT scanning and make further assessment and treatment plans after the above. He will be hydrated and given antiulcer treatment. Further orders pending above. Rodo Dockery M.D. DR: Clara JOB#: [id number] CC:
[2017-04-24] MEDS: Piperacillin/Tazobactam 3.375 GM in D5W 110 ML IVPB SCH ×2 (14:00→21:30)
--- NOTE | 2017-04-24 15:11 | General Progress Note ---
Progress Note Progress Note Surgery: patient seen and examined at bedside. no acute events. had colonoscopy today and reviewed findings with GI. area of twisting in colon with obstruction. area of ulceration which could be fistula? to bladder? possible mass. biopsy taken and pending path. patient states he feels okay otherwise. still with mild abd pain. no n/v/f/c. labs reviewed. CT reviewed. etiology unknown but could potentially be perf diverticuli, fistula, cancer, IBD ? unfortunately still with large bowel obstruction from this lesion. will proceed with Barium Enema to evaluate bowel and possible fistula to bladder. will likely need operation in next few days with bowel resection. will follow with recs. NPO IV fluids IV Abx Barium enema Hany Salinas Apr 24, 2017 15:11
--- NOTE | 2017-04-24 15:41 | General Progress Note ---
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 - Other specified disorders of the skin and subcutaneous tissue SNOMED: 812506443 (2) Abdominal pain ICD Codes: R10.9 - Unspecified abdominal pain SNOMED: 47039918 Qualifiers: Qualified Codes: R10.84 - Generalized abdominal pain (3) Bowel obstruction ICD Codes: K56.609 - Unspecified intestinal obstruction, unspecified as to partial versus complete obstruction SNOMED: 52811756 Assessment/Plan gi and surg eval, npo Subjective Constitutional: Reports: weakness HEENT: Reports: no symptoms Cardiovascular: Reports: no symptoms Respiratory: Reports: no symptoms Gastrointestinal/Abdominal: Reports: abdomen distended Genitourinary: Reports: no symptoms Neurologic/Psychiatric: Reports: no symptoms Endocrine: Reports: no symptoms Allergies: Coded Allergies: ACETAMINOPHEN (Verified Allergy, Unknown, 04/23/17) Objective Last 24 Hour Vital Signs Date Time Temp Pulse Resp B/P (MAP) Pulse Ox O2 Delivery O2 Flow Rate FiO2 04/24/17 12:40 98.4 63 18 124/67 100 Room Air 04/24/17 12:35 58 18 114/72 99 Room Air 04/24/17 12:29 54 18 100 04/24/17 12:27 63 18 100 04/24/17 12:25 56 18 110/73 100 Simple Mask 10.0 04/24/17 12:20 65 18 99/55 100 Simple Mask 10.0 04/24/17 12:15 98.5 60 18 101/57 100 Simple Mask 10.0 04/24/17 08:00 97.3 63 18 112/71 97 04/24/17 04:52 98.2 63 18 127/73 100 Room Air 04/24/17 00:51 98.0 69 19 105/60 100 Room Air 04/23/17 19:45 98.2 73 20 128/90 100 Room Air 04/23/17 18:23 98.6 74 20 132/85 97 Room Air 04/23/17 17:36 74 20 132/85 97 Room Air Intake and Output 04/23/17 04/24/17 19:00 07:00 Intake Total 1000 ml 1500 ml Balance 1000 ml 1500 ml Intake IV Total 1000 ml 1500 ml # Voids 1 2 Laboratory Tests 04/24/17 09:30: White Blood Count 11.2H, Red Blood Count 4.74, Hemoglobin 15.6, Hematocrit 44.0 , Mean Corpuscular Volume 93, Mean Corpuscular Hemoglobin 32.9H, Mean Corpuscular Hemoglobin Concent 35.5, Red Cell Distribution Width 11.6, Platelet Count 326, Mean Platelet Volume 7.4, Neutrophils (%) (Auto) 71.3, Lymphocytes (% ) (Auto) 18.5L, Monocytes (%) (Auto) 9.3, Eosinophils (%) (Auto) 0.2, Basophils (%) (Auto) 0.8, Sodium Level 139, Potassium Level 4.1, Chloride Level 105, Carbon Dioxide Level 26, Anion Gap 8, Blood Urea Nitrogen 10, Creatinine 1.0, Estimat Glomerular Filtration Rate > 60, Glucose Level 126H, Calcium Level 8.8, Total Bilirubin 0.6, Aspartate Amino Transf (AST/SGOT) 16, Alanine Aminotransferase (ALT/SGPT) 14, Alkaline Phosphatase 80, Total Protein 8.1, Albumin 3.4, Globulin 4.7, Albumin/Globulin Ratio 0.7L Height (Feet): 5 Height (Inches): 11.00 Weight (Pounds): 188 General Appearance: no apparent distress EENT: normal ENT inspection Neck: normal alignment Cardiovascular: normal rate Respiratory/Chest: lungs clear Abdomen: soft, decreased bowel sounds 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
--- NOTE | 2017-04-24 18:15 | Cardiology Report ---
APPROVED REPORT EKG Measurement Heart [id number] Normal sinus rhythm Normal ECG
[2017-04-25] VITALS (7 sets, daily range): BP systolic 102–134; BP diastolic 59–86
[2017-04-25] MEDS: LORazepam Inj 2mg/ml 1ml IV PRN ×2 (00:43→08:17)
[2017-04-25] MEDS: Piperacillin/Tazobactam 3.375 GM in D5W 110 ML IVPB SCH ×3 (06:16→21:14)
[2017-04-25] MEDS: D5 1/2NS w/KCl 30mEq 1000ml 1,000 ML IV SCH ×4 (06:16→21:21)
[2017-04-25 07:29] LABS: HEMATOCRIT 43.7 % (42.0-52.0); HEMOGLOBIN 15.4 G/DL (14.2-18.0); LYMPHOCYTES % (AUTO) 17.7 % (20.0-45.0); MEAN CORPUSCULAR VOLUME 92 FL (80-99); NEUTROPHILS % (AUTO) 75.3 % (45.0-75.0); PLATELET COUNT 282 K/UL (150-450); RED BLOOD COUNT 4.75 M/UL (4.70-6.10); RED CELL DISTRIBUTION WIDTH 11.1 % (11.6-14.8); WHITE BLOOD COUNT 9.8 K/UL (4.8-10.8)
[2017-04-25 07:30] LABS: BASOPHILS % (AUTO) 0.5 % (0.0-2.0); MONOCYTES % (AUTO) 6.5 % (1.0-10.0)
[2017-04-25 07:53] LABS: ALANINE AMINOTRANSFERASE 19 U/L (12-78); ALBUMIN 3.4 G/DL (3.4-5.0); ALBUMIN/GLOBULIN RATIO 0.7 (1.0-2.7); ALKALINE PHOSPHATASE 79 U/L (46-116); ANION GAP 8 mmol/L (5-15); ASPARTATE AMINO TRANSFERASE 16 U/L (15-37); BILIRUBIN,TOTAL 0.6 MG/DL (0.2-1.0); BLOOD UREA NITROGEN 7 mg/dL (7-18); CALCIUM 8.6 MG/DL (8.5-10.1); CARBON DIOXIDE 26 MMOL/L (21-32); CHLORIDE 101 MMOL/L (98-107); CREATININE 0.9 MG/DL (0.55-1.30); POTASSIUM 3.6 MMOL/L (3.5-5.1); SODIUM 135 MMOL/L (136-145)
[2017-04-25] MEDS: Heparin 5000 units/ml inj SUBQ SCH ×2 (08:23→21:20)
--- NOTE | 2017-04-25 10:56 | General Surgery Progress Note ---
General Surgery-Progress Note Subjective Additional Comments unchanged. had scope yesterday which identified abnormality. pending biopsies. states he has cramping and hyperactive bowel sounds. passing lots of flatus. hungry. Objective Last 24 Hour Vital Signs Date Time Temp Pulse Resp B/P (MAP) Pulse Ox O2 Delivery O2 Flow Rate FiO2 04/25/17 08:00 98.2 72 19 102/59 99 04/25/17 04:00 97.3 65 18 115/73 97 04/25/17 00:01 Room Air 04/25/17 00:00 98.1 63 19 118/80 97 04/24/17 20:01 Room Air 04/24/17 20:00 98.1 69 18 124/85 97 04/24/17 16:00 98.6 68 19 119/85 100 04/24/17 12:40 98.4 63 18 124/67 100 Room Air 04/24/17 12:35 58 18 114/72 99 Room Air 04/24/17 12:29 54 18 100 04/24/17 12:27 63 18 100 04/24/17 12:25 56 18 110/73 100 Simple Mask 10.0 04/24/17 12:20 65 18 99/55 100 Simple Mask 10.0 04/24/17 12:15 98.5 60 18 101/57 100 Simple Mask 10.0 I&O Intake and Output 04/24/17 04/25/17 19:00 07:00 Intake Total 450 ml 1210.0 ml Output Total 200 ml Balance 450 ml 1010.0 ml Intake Oral 200 ml IV Total 450 ml 1010.0 ml Output Emesis 200 ml # Voids 2 Cardiovascular: RSR Respiratory: clear Abdomen: soft, distended, non-tender, present bowel sounds Extremities: no edema Laboratory Tests Test 04/25/17 06:20 White Blood Count 9.8 K/UL (4.8-10.8) Red Blood Count 4.75 M/UL (4.70-6.10) Hemoglobin 15.4 G/DL (14.2-18.0) Hematocrit 43.7 % (42.0-52.0) Mean Corpuscular Volume 92 FL (80-99) Mean Corpuscular Hemoglobin 32.3 PG (27.0-31.0) H Mean Corpuscular Hemoglobin Concent 35.1 G/DL (32.0-36.0) Red Cell Distribution Width 11.1 % (11.6-14.8) L Platelet Count 282 K/UL (150-450) Mean Platelet Volume 7.5 FL (6.5-10.1) Neutrophils (%) (Auto) 75.3 % (45.0-75.0) H Lymphocytes (%) (Auto) 17.7 % (20.0-45.0) L Monocytes (%) (Auto) 6.5 % (1.0-10.0) Eosinophils (%) (Auto) 0.0 % (0.0-3.0) Basophils (%) (Auto) 0.5 % (0.0-2.0) Sodium Level 135 MMOL/L (136-145) L Potassium Level 3.6 MMOL/L (3.5-5.1) Chloride Level 101 MMOL/L (98-107) Carbon Dioxide Level 26 MMOL/L (21-32) Anion Gap 8 mmol/L (5-15) Blood Urea Nitrogen 7 mg/dL (7-18) Creatinine 0.9 MG/DL (0.55-1.30) Estimat Glomerular Filtration Rate > 60 mL/min (>60) Glucose Level 130 MG/DL (74-106) H Calcium Level 8.6 MG/DL (8.5-10.1) Total Bilirubin 0.6 MG/DL (0.2-1.0) Aspartate Amino Transf (AST/SGOT) 16 U/L (15-37) Alanine Aminotransferase (ALT/SGPT) 19 U/L (12-78) Alkaline Phosphatase 79 U/L (46-116) Total Protein 8.2 G/DL (6.4-8.2) Albumin 3.4 G/DL (3.4-5.0) Globulin 4.8 g/dL Albumin/Globulin Ratio 0.7 (1.0-2.7) L Plan Problems: (1) Abdominal pain Assessment & Plan: 32M with abdominal pain, nausea, emesis, diarrhea. afebrile , HD stable, labs okay. on exam distended with some mild cramping discomfort but no acute abdomen. CT reviewed. Colonoscopy reviewed. etiology unknown but was noted to have twisting of bowel at 30cm with ulcerated lesion. pending biopsy. -Barium enema today to evaluate bowel contortion and possible fistula to bladder. -given lesion noted, condition, and large bowel obstruction that is not improving and unable to resolve with colonoscopy will need surgical intervention. once BE completed and reviewed will discuss surgical options and plan with patient. -npo -iv fluids -iv abx -will follow with recs -thank you for this consultation. Hany Salinas Apr 25, 2017 10:56
--- NOTE | 2017-04-25 12:46 | Diagnostic Imaging Report ---
Indication: Colonic obstruction. Concern for intussusception versus mass. Comparison: CT abdomen and pelvis 04/23/2017 Findings: Rectal tube was inserted. Single contrast Gastrografin was administered. There is a focal high-grade stricture that is not completely obstructive involving the sigmoid colon. Some contrast does pass more proximally into dilated loops of colon. There is no intussusception identified. There is no evidence of a colovesical fistula. 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
--- NOTE | 2017-04-25 13:29 | General Progress Note ---
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 - Other specified disorders of the skin and subcutaneous tissue SNOMED: 200536326 (2) Abdominal pain ICD Codes: R10.9 - Unspecified abdominal pain SNOMED: 41746168 Qualifiers: Qualified Codes: R10.84 - Generalized abdominal pain (3) Bowel obstruction ICD Codes: K56.609 - Unspecified intestinal obstruction, unspecified as to partial versus complete obstruction SNOMED: 89036968 Assessment/Plan gi and surg eval, npo, BE stricture sigmoid, stable for surgery Subjective Constitutional: Reports: weakness HEENT: Reports: no symptoms Cardiovascular: Reports: no symptoms Respiratory: Reports: no symptoms Gastrointestinal/Abdominal: Reports: abdomen distended, abdominal pain Genitourinary: Reports: no symptoms Neurologic/Psychiatric: Reports: no symptoms Hematologic/Lymphatic: Reports: no symptoms Allergies: Coded Allergies: ACETAMINOPHEN (Verified Allergy, Unknown, 04/23/17) Objective Last 24 Hour Vital Signs Date Time Temp Pulse Resp B/P (MAP) Pulse Ox O2 Delivery O2 Flow Rate FiO2 04/25/17 12:22 98.4 69 18 109/68 99 04/25/17 08:00 98.2 72 19 102/59 99 04/25/17 04:00 97.3 65 18 115/73 97 04/25/17 00:01 Room Air 04/25/17 00:00 98.1 63 19 118/80 97 04/24/17 20:01 Room Air 04/24/17 20:00 98.1 69 18 124/85 97 04/24/17 16:00 98.6 68 19 119/85 100 Intake and Output 04/24/17 04/25/17 19:00 07:00 Intake Total 450 ml 1210.0 ml Output Total 200 ml Balance 450 ml 1010.0 ml Intake Oral 200 ml IV Total 450 ml 1010.0 ml Output Emesis 200 ml # Voids 2 Laboratory Tests 04/25/17 06:20: White Blood Count 9.8, Red Blood Count 4.75, Hemoglobin 15.4, Hematocrit 43.7, Mean Corpuscular Volume 92, Mean Corpuscular Hemoglobin 32.3H, Mean Corpuscular Hemoglobin Concent 35.1, Red Cell Distribution Width 11.1L, Platelet Count 282, Mean Platelet Volume 7.5, Neutrophils (%) (Auto) 75.3H, Lymphocytes (%) (Auto) 17.7L, Monocytes (%) (Auto) 6.5, Eosinophils (%) (Auto) 0.0, Basophils (%) (Auto ) 0.5, Sodium Level 135L, Potassium Level 3.6, Chloride Level 101, Carbon Dioxide Level 26, Anion Gap 8, Blood Urea Nitrogen 7, Creatinine 0.9, Estimat Glomerular Filtration Rate > 60, Glucose Level 130H, Calcium Level 8.6, Total Bilirubin 0.6, Aspartate Amino Transf (AST/SGOT) 16, Alanine Aminotransferase ( ALT/SGPT) 19, Alkaline Phosphatase 79, Total Protein 8.2, Albumin 3.4, Globulin 4.8, Albumin/Globulin Ratio 0.7L Height (Feet): 5 Height (Inches): 11.00 Weight (Pounds): 188 General Appearance: mild distress EENT: normal ENT inspection Neck: normal alignment Cardiovascular: normal rate, regular rhythm Respiratory/Chest: lungs clear Abdomen: distended Edema: no edema noted Arm (L), no edema noted Arm (R), no edema noted Leg (L), no edema noted Leg (R), no edema noted Pedal (L), no edema noted Pedal (R), no edema noted Generalized 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
--- NOTE | 2017-04-25 16:00 | Consultation ---
DATE OF CONSULTATION: 04/24/2017 NOTE: POOR AUDIO GASTROENTEROLOGY CONSULTATION CONSULTING PHYSICIAN: Geeta Negro M.D. CHIEF COMPLAINT: I was asked to see this patient by Dr. Rodo Dockery for evaluation of abdominal pain and abnormal CT scan. HISTORY OF PRESENT ILLNESS: The patient is a 32-year-old, previously otherwise healthy man, who had some vague abdominal cramping for about two weeks or so. He reports having episodes of cramping and bloating, which would come on transiently and resolve on its own. He was taking some [id number] medications, but about one to two days prior to admission, he noticed rapid escalation in his abdominal distention and pain and he also had nausea and vomiting. He was brought into the emergency room and in the meantime, he also had some bouts of flatus and diarrhea. Diarrhea was normal color and nonbloody. KUB was done showing some suspicious abnormality in the wall of the colon. Therefore, subsequent CT scan was done. 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 The patient denies any bladder symptoms or air in his urine or problem with his urine. The patient has had no chronic symptoms related to the GI tract and has no family history of GI symptoms. PAST MEDICAL HISTORY: Otherwise negative. ALLERGIES: None. FAMILY HISTORY: Noncontributory and negative. SOCIAL HISTORY: The patient previously smoked marijuana, but he stopped using six months ago. He did not use any drugs. He has a girlfriend. REVIEW OF SYSTEMS: Otherwise negative. PHYSICAL EXAMINATION: GENERAL: A pleasant man, seen in his room. HEENT: Normocephalic and atraumatic. Sclerae anicteric. Oropharynx clear. NECK: Supple. CHEST: Clear to auscultation. CARDIOVASCULAR: Revealed a regular rate. ABDOMEN: Mildly distended and mildly tender in the central region vertically. There was, however, no guarding, rebound, or masses. The abdomen was, generally speaking, very soft. EXTREMITIES: Revealed no edema. LABORATORY AND DIAGNOSTIC DATA: Laboratory data and CT scan were noted. 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 This corresponds to urinalysis, which is clearly abnormal, although the patient did not have any bladder symptoms. Differential diagnosis would include some type of malignancy causing the fistulous connection. Inflammatory bowel disease such as Crohn's could also cause this. Perforated diverticula is another possibility, although the patient has no diverticulosis on the CT scan. Given the patient's abdomen is soft, a definite differential would have to be made. The patient will undergo sigmoidoscopy today to better evaluate the pathology and also to help further approach including surgical intervention. In the meantime, the patient should be placed on broad-spectrum antibiotics given the presumed fistulous connection between the colon and the bladder and abnormal urinalysis. RECOMMENDATIONS: 1. Keep the patient NPO. 2. Close followup. 3. Flexible sigmoidoscopy with biopsy. 4. Broad-spectrum antibiotics. Thank you for asking me to participate in the care of this patient. Geeta Negro M.D. DR: ADRIEN JOB#: [id number] CC: LORRAINE
--- NOTE | 2017-04-25 22:15 | General Progress Note ---
Assessment/Plan Assessment/Plan Assessment - distal sigmoid thickening & obstructive process - possible fistula to the bladder but BE negative - diarrhea - UTI vs fistula Recommendations - NPO - IV fluids - abx - surgical planning Subjective Allergies: Coded Allergies: ACETAMINOPHEN (Verified Allergy, Unknown, 04/23/17) Subjective seen this am still with abd pain d/w patient re need for surgery and likely temp colostomy Objective Last 24 Hour Vital Signs Date Time Temp Pulse Resp B/P (MAP) Pulse Ox O2 Delivery O2 Flow Rate FiO2 04/25/17 21:59 98.2 63 18 111/65 98 Room Air 04/25/17 20:00 98.3 63 18 111/65 98 Room Air 04/25/17 16:00 98.9 63 18 113/79 98 04/25/17 12:22 98.4 69 18 109/68 99 04/25/17 08:00 98.2 72 19 102/59 99 04/25/17 04:00 97.3 65 18 115/73 97 04/25/17 00:01 Room Air 04/25/17 00:00 98.1 63 19 118/80 97 Intake and Output 04/24/17 04/25/17 19:00 07:00 Intake Total 450 ml 1237.5 ml Output Total 200 ml Balance 450 ml 1037.5 ml Intake Oral 200 ml IV Total 450 ml 1037.5 ml Output Emesis 200 ml # Voids 2 Laboratory Tests 04/25/17 06:20: White Blood Count 9.8, Red Blood Count 4.75, Hemoglobin 15.4, Hematocrit 43.7, Mean Corpuscular Volume 92, Mean Corpuscular Hemoglobin 32.3H, Mean Corpuscular Hemoglobin Concent 35.1, Red Cell Distribution Width 11.1L, Platelet Count 282, Mean Platelet Volume 7.5, Neutrophils (%) (Auto) 75.3H, Lymphocytes (%) (Auto) 17.7L, Monocytes (%) (Auto) 6.5, Eosinophils (%) (Auto) 0.0, Basophils (%) (Auto ) 0.5, Sodium Level 135L, Potassium Level 3.6, Chloride Level 101, Carbon Dioxide Level 26, Anion Gap 8, Blood Urea Nitrogen 7, Creatinine 0.9, Estimat Glomerular Filtration Rate > 60, Glucose Level 130H, Calcium Level 8.6, Total Bilirubin 0.6, Aspartate Amino Transf (AST/SGOT) 16, Alanine Aminotransferase ( ALT/SGPT) 19, Alkaline Phosphatase 79, Total Protein 8.2, Albumin 3.4, Globulin 4.8, Albumin/Globulin Ratio 0.7L Height (Feet): 5 Height (Inches): 11.00 Weight (Pounds): 188 PARIS RAY Apr 25, 2017 22:15
[2017-04-26 00:12] VITALS: BP 118/76
[2017-04-26] MEDS: D5 1/2NS w/KCl 30mEq 1000ml 1,000 ML IV SCH ×4 (02:06→20:58)
[2017-04-26] MEDS ORDERED: Morphine Sulfate 2mg/ml Inj IVP PRN (02:30)
[2017-04-26 04:00] VITALS: BP 121/78
[2017-04-26] MEDS: Piperacillin/Tazobactam 3.375 GM in D5W 110 ML IVPB SCH ×3 (05:59→21:00)
[2017-04-26 08:00] VITALS: BP 127/82
[2017-04-26] MEDS: Morphine Sulfate 4mg/ml Inj IVP PRN ×4 (08:37→20:50)
[2017-04-26] MEDS: Heparin 5000 units/ml inj SUBQ SCH ×2 (08:39→20:46)
[2017-04-26 12:00] VITALS: BP 123/81
--- NOTE | 2017-04-26 15:12 | Anethesia Preoperative Eval ---
Anesthesia Pre-op PMH/ROS General Date of Evaluation: Apr 26, 2017 Time of Evaluation: 14:21 Anesthesiologist: Ariadna ASA Score: ASA 2 Mallampati Score Class I : Soft palate, uvula, fauces, pillars visible Class II: Soft palate, uvula, fauces visible Class III: Soft palate, base of uvula visible Class IV: Only hard plate visible Mallampati Classification: Class II Surgeon: Brad Diagnosis: Abd Pain Surgical Procedure: Laproscopic Possible Open Colectomy Anesthesia History: none Social History: current smoker Family History: no anesthesia problems Allergies: Coded Allergies: ACETAMINOPHEN (Verified Allergy, Unknown, 04/23/17) Medications: see eMAR Past Medical History Gastrointestinal/Genitourinary: Reports: other - Large Bowel Obstruction Anesthesia Pre-op Phys. Exam Physician Exam Last Vital Signs Date Time Temp Pulse Resp B/P (MAP) Pulse Ox O2 Delivery O2 Flow Rate FiO2 04/26/17 13:25 97.7 04/26/17 12:00 56 18 123/81 99 04/26/17 04:00 Room Air 04/24/17 12:25 10.0 Constitutional: NAD Neurologic: CN 2-12 intact Cardiovascular: RRR Respiratory: CTA Gastrointestinal: S/NT/ND Airway Exam Mallampati Score: Class II MO: full ROM: full Teeth: intact Anesthesia Pre-op A/P Risk Assessment & Plan Assessment: ASA 2 Plan: GA Status Change Before Surgery: No Pre-Antibiotics Drug: Clay Shine MD Apr 26, 2017 15:12
--- NOTE | 2017-04-26 15:15 | General Surgery Progress Note ---
General Surgery-Progress Note Subjective Additional Comments still with pain and discomfort. passing flatus. no n/v/f/c. BE with tight stricture/large bowel obstruction. Objective Last 24 Hour Vital Signs Date Time Temp Pulse Resp B/P (MAP) Pulse Ox O2 Delivery O2 Flow Rate FiO2 04/26/17 13:25 97.7 04/26/17 12:00 97.7 56 18 123/81 99 04/26/17 08:00 97.3 67 18 127/82 99 04/26/17 04:00 98.0 53 18 121/78 98 Room Air 04/26/17 00:12 97.9 62 18 118/76 99 Room Air 04/25/17 21:59 98.2 63 18 111/65 98 Room Air 04/25/17 20:00 98.3 63 18 111/65 98 Room Air 04/25/17 16:00 98.9 63 18 113/79 98 I&O Intake and Output 04/25/17 04/26/17 19:00 07:00 Intake Total 1515.0 ml 710.0 ml Balance 1515.0 ml 710.0 ml IV Total 1515.0 ml 710.0 ml # Voids 3 4 # Bowel Movements 1 Cardiovascular: RSR Respiratory: clear Abdomen: soft, distended, present bowel sounds Extremities: no tenderness Plan Problems: (1) Abdominal pain Assessment & Plan: 32M with abdominal pain, nausea, emesis, diarrhea. afebrile , HD stable, labs okay. on exam distended with some mild cramping discomfort but no acute abdomen. CT reviewed. Colonoscopy reviewed. etiology unknown but was noted to have twisting of bowel at 30cm with ulcerated lesion. path negative BE with tight stricture or obstructing lesion in sigmoid. Will proceed with surgery tomorrow AM -npo -iv fluids -iv abx -will follow with recs -thank you for this consultation. Hany Salinas Apr 26, 2017 15:15
--- NOTE | 2017-04-26 15:18 | Pre-Procedure Note/Attestation ---
Pre-Procedure Note/Attestation Complete Prior to Procedure Planned Procedure: not applicable Procedure Narrative: laparoscopic possible open left colectomy Indications for Procedure Pre-Operative Diagnosis: large bowel obstruction Attestation I attest that I discussed the nature of the procedure; its benefits; risks and complications; and alternatives (and the risks and benefits of such alternatives ), prior to the procedure, with the patient (or the patient's legal sales representative sales manager). I attest that, if there was a reasonable possibility of needing a blood transfusion, the patient (or the patient's legal sales representative sales manager) was given the [facility] standardized written summary, pursuant to the Dwight Bertrand Blood Safety Act ([place] Health and Safety Code # 1645, as amended). I attest that I re-evaluated the patient just prior to the surgery and that there has been no change in the patient's H&P, except as documented below: Hany Salinas Apr 26, 2017 15:18
[2017-04-26 16:00] VITALS: BP 118/76
--- NOTE | 2017-04-26 16:51 | General Progress Note ---
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 - Other specified disorders of the skin and subcutaneous tissue SNOMED: 565851204 (2) Abdominal pain ICD Codes: R10.9 - Unspecified abdominal pain SNOMED: 17940272 Qualifiers: Qualified Codes: R10.84 - Generalized abdominal pain (3) Bowel obstruction ICD Codes: K56.609 - Unspecified intestinal obstruction, unspecified as to partial versus complete obstruction SNOMED: 41203159 Assessment/Plan gi and surg eval, npo, BE stricture sigmoid, stable for surgery Subjective Constitutional: Reports: weakness HEENT: Reports: no symptoms Cardiovascular: Reports: no symptoms Respiratory: Reports: no symptoms Gastrointestinal/Abdominal: Reports: abdomen distended, nausea Genitourinary: Reports: no symptoms Neurologic/Psychiatric: Reports: no symptoms Endocrine: Reports: no symptoms Allergies: Coded Allergies: ACETAMINOPHEN (Verified Allergy, Unknown, 04/23/17) Objective Last 24 Hour Vital Signs Date Time Temp Pulse Resp B/P (MAP) Pulse Ox O2 Delivery O2 Flow Rate FiO2 04/26/17 16:00 97.7 52 18 118/76 99 04/26/17 13:25 97.7 04/26/17 12:00 97.7 56 18 123/81 99 04/26/17 08:00 97.3 67 18 127/82 99 04/26/17 04:00 98.0 53 18 121/78 98 Room Air 04/26/17 00:12 97.9 62 18 118/76 99 Room Air 04/25/17 21:59 98.2 63 18 111/65 98 Room Air 04/25/17 20:00 98.3 63 18 111/65 98 Room Air Intake and Output 04/25/17 04/26/17 19:00 07:00 Intake Total 1515.0 ml 710.0 ml Balance 1515.0 ml 710.0 ml IV Total 1515.0 ml 710.0 ml # Voids 3 4 # Bowel Movements 1 Height (Feet): 5 Height (Inches): 11.00 Weight (Pounds): 188 General Appearance: alert, mild distress EENT: PERRL/EOMI Neck: non-tender Cardiovascular: normal rate Respiratory/Chest: lungs clear Abdomen: decreased bowel sounds, distended Extremities: no calf tenderness 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
[2017-04-26 20:00] VITALS: BP 113/70
--- NOTE | 2017-04-26 22:51 | General Progress Note ---
Assessment/Plan Assessment/Plan Assessment - distal sigmoid thickening & obstructive process - path negative - likely a sampling problems - diarrhea - UTI vs fistula Recommendations - NPO - IV fluids - abx - surgical planning Subjective Allergies: Coded Allergies: ACETAMINOPHEN (Verified Allergy, Unknown, 04/23/17) Subjective seen this am still with abd pain surgery planned for am path negative Objective Last 24 Hour Vital Signs Date Time Temp Pulse Resp B/P (MAP) Pulse Ox O2 Delivery O2 Flow Rate FiO2 04/26/17 20:00 98.3 51 18 113/70 97 04/26/17 17:00 97.7 04/26/17 16:00 97.7 52 18 118/76 99 04/26/17 12:00 97.7 56 18 123/81 99 04/26/17 08:00 97.3 67 18 127/82 99 04/26/17 04:00 98.0 53 18 121/78 98 Room Air 04/26/17 00:12 97.9 62 18 118/76 99 Room Air Intake and Output 04/25/17 04/26/17 19:00 07:00 Intake Total 1515.0 ml 710.0 ml Balance 1515.0 ml 710.0 ml IV Total 1515.0 ml 710.0 ml # Voids 3 4 # Bowel Movements 1 Height (Feet): 5 Height (Inches): 11.00 Weight (Pounds): 188 PARIS RAY Apr 26, 2017 22:51
[2017-04-27] VITALS (13 sets, daily range): BP systolic 114–134; BP diastolic 67–89
[2017-04-27] MEDS: Morphine Sulfate 4mg/ml Inj IVP PRN ×2 (00:36→05:24)
[2017-04-27] MEDS: D5 1/2NS w/KCl 30mEq 1000ml 1,000 ML IV SCH ×2 (05:09→12:40)
[2017-04-27] MEDS: Piperacillin/Tazobactam 3.375 GM in D5W 110 ML IVPB SCH (05:10)
[2017-04-27] MEDS ORDERED: Lidocaine 1% Plain 30 ml INJ ONE (08:00)
[2017-04-27] MEDS ORDERED: Glycopyrrolate 0.2mg/ml 1ml Vial ONE (08:00)
[2017-04-27] MEDS ORDERED: NS Irrig 1000ml ONE (08:00)
[2017-04-27] MEDS ORDERED: Sterile Water Irrig 1000ml IRRIG ONE (08:00)
[2017-04-27] MEDS ORDERED: LR 1000ml ONE (08:00)
[2017-04-27] MEDS ORDERED: Dexamethasone 4mg/ml vial ONE (08:00)
[2017-04-27] MEDS ORDERED: Neostigmine 1mg/ml 10ml Inj ONE (08:00)
[2017-04-27] MEDS ORDERED: Midazolam 2mg/2ml Inj ONE (08:00)
[2017-04-27] MEDS ORDERED: fentaNYL 100 mcg/2 mL IV ONE (08:00)
[2017-04-27] MEDS ORDERED: Zemuron 50mg/5ml Inj IV ONE (08:00)
[2017-04-27] MEDS: Heparin 5000 units/ml inj SUBQ SCH ×2 (09:00→21:00)
[2017-04-27] MEDS ORDERED: LR 1000ml 1,000 ML IVLG SCH (09:19)
[2017-04-27] MEDS ORDERED: EPINEPHrine 1mg/1ml Amp ONE (09:24)
[2017-04-27] MEDS ORDERED: Bupivacaine 0.25% Inj 30ml INJ ONE (09:25)
[2017-04-27] MEDS ORDERED: Midazolam 2mg/2ml Inj IVP PRN (09:30)
[2017-04-27] MEDS ORDERED: fentaNYL 100 mcg/2 mL IV PRN (09:30)
[2017-04-27] MEDS ORDERED: Hydromorphone 0.5mg/0.5ml inj IVP PRN ×2 (09:30→14:30)
[2017-04-27] MEDS ORDERED: DiphenhydrAMINE 50mg/ml Inj IVP PRN ×3 (09:30→14:30)
[2017-04-27] MEDS ORDERED: Atropine Inj 1mg/10ml Syr IV PRN (09:30)
[2017-04-27] MEDS ORDERED: Labetalol 5mg/ml 20ml vial IV PRN (09:30)
[2017-04-27] MEDS ORDERED: LORazepam Inj 2mg/ml 1ml IV PRN (09:30)
--- NOTE | 2017-04-27 09:31 | Immediate Post-Op Evaluation ---
Immediate Post-Op Evalulation Immediate Post-Op Evalulation Procedure: Open Colectomy, Diverting Colostomy, Small Bowel Resection Date of Evaluation: Apr 27, 2017 Time of Evaluation: 14:22 IV Fluids: 1300 LR Blood Products: 0 Estimated Blood Loss: 200 Urinary Output: 200 Blood Pressure Systolic: 124 Blood Pressure Diastolic: 89 Pulse Rate: 72 Respiratory Rate: 16 O2 Sat by Pulse Oximetry: 100 Temperature (Fahrenheit): 98.6 Pain Score (1-10): 3 Nausea: No Vomiting: No Complications 0 Patient Status: awake, reacts, patent, extubated, none Hydration Status: adequate Dru Grams Ancef IV Given Within 1 Hr of Incision: Yes Time Given: 09:46 Clay Rosenthal MD Apr 27, 2017 09:31
[2017-04-27] MEDS: PCA HYDROmorphone 1mg/ml 30 ML IV PRN (14:28)
[2017-04-27] MEDS ORDERED: Ketorolac 30mg Inj IV PRN (14:30)
[2017-04-27] MEDS ORDERED: Naloxone 0.4mg/ml Inj IVP PRN (14:30)
[2017-04-27] MEDS ORDERED: LORazepam 1mg tab ORAL PRN (14:30)
[2017-04-27] MEDS ORDERED: HYDROmorphone 1mg/ml Carpuject IVP PRN (14:30)
[2017-04-27] MEDS ORDERED: Rate Change PCA 1 Each MISC PRN (14:30)
--- NOTE | 2017-04-27 14:30 | Brief Operative Note ---
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
--- NOTE | 2017-04-27 17:15 | General Progress Note ---
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 - Other specified disorders of the skin and subcutaneous tissue SNOMED: 710943493 (2) Abdominal pain ICD Codes: R10.9 - Unspecified abdominal pain SNOMED: 04632794 Qualifiers: Qualified Codes: R10.84 - Generalized abdominal pain (3) Bowel obstruction ICD Codes: K56.609 - Unspecified intestinal obstruction, unspecified as to partial versus complete obstruction SNOMED: 59147388 4) S/P colostomy Plan: Continue IV fluid NPO NG to suction Subjective Allergies: Coded Allergies: ACETAMINOPHEN (Verified Allergy, Unknown, 04/23/17) Objective Last 24 Hour Vital Signs Date Time Temp Pulse Resp B/P (MAP) Pulse Ox O2 Delivery O2 Flow Rate FiO2 04/27/17 15:16 20 04/27/17 15:01 20 04/27/17 14:59 69 20 128/80 100 Nasal Cannula 3.0 04/27/17 14:46 20 04/27/17 14:44 69 20 121/76 100 Nasal Cannula 3.0 04/27/17 14:30 66 20 116/69 100 Simple Mask 8.0 04/27/17 14:28 20 04/27/17 14:21 71 20 115/68 100 Simple Mask 8.0 04/27/17 14:16 71 20 120/74 100 Simple Mask 8.0 04/27/17 14:13 72 16 100 04/27/17 14:11 98.6 82 20 134/89 100 Simple Mask 8.0 04/27/17 08:02 98.1 60 18 118/72 98 Room Air 04/27/17 04:00 97.6 51 18 117/71 100 04/27/17 00:00 98.1 53 17 115/67 99 04/26/17 20:00 98.3 51 18 113/70 97 Intake and Output 04/26/17 04/27/17 19:00 07:00 Intake Total 1800 ml 750 ml Balance 1800 ml 750 ml IV Total 1800 ml 750 ml # Voids 4 4 Height (Feet): 5 Height (Inches): 11.00 Weight (Pounds): 188 General Appearance: WD/WN, no apparent distress EENT: PERRL/EOMI Neck: non-tender Cardiovascular: normal peripheral pulses, regular rhythm Respiratory/Chest: chest wall non-tender, lungs clear Abdomen: other - Post surgical, s/p colostomy Extremities: normal range of motion, non-tender 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
[2017-04-27] MEDS: Piperacillin/Tazobactam 3.375 GM in NS 110 ML IVPB SCH ×2 (17:39→23:12)
[2017-04-27] MEDS ORDERED: PCA Education Pamphlet MISC ONE (18:00)
[2017-04-27] MEDS: D5 1/2NS w/KCl 20mEq 1,000 ML IV SCH (18:00)
--- NOTE | 2017-04-27 18:43 | General Progress Note ---
Progress Note Progress Note Surgery: POD #0 s/p laparoscopy converted to exploratory laparotomy with small bowel resection, sigmoid colon resection, bladder repair, colostomy creation for significant sigmoid colon inflammatory process? with fistula to bladder and distal small bowel. -NPO -IV fluids -IV Abx -Díaz must stay in 2 weeks!! 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
[2017-04-27] MEDS: PCA shift volume MISC SCH (19:00)
[2017-04-28] VITALS: BP 113/81
[2017-04-28] MEDS: D5 1/2NS w/KCl 20mEq 1,000 ML IV SCH ×3 (02:18→18:12)
[2017-04-28 04:00] VITALS: BP 110/72
[2017-04-28] MEDS: Piperacillin/Tazobactam 3.375 GM in NS 110 ML IVPB SCH ×3 (05:07→21:50)
[2017-04-28] MEDS: PCA shift volume MISC SCH ×2 (07:00→19:20)
--- NOTE | 2017-04-28 08:03 | General Progress Note ---
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, resections, and colostomy - tachycardia Recommendations - NPO - IV fluids - Consider PICC line / TPN - abx - surgical f/u - f/u path - f/u today labs (pending now) Subjective Allergies: Coded Allergies: ACETAMINOPHEN (Verified Allergy, Unknown, 04/23/17) Subjective POD #1 d/w surgery re findings patient c/o bloating and distention (+) colostomy stool, also buldging of colonic tissue Objective Last 24 Hour Vital Signs Date Time Temp Pulse Resp B/P (MAP) Pulse Ox O2 Delivery O2 Flow Rate FiO2 04/28/17 04:17 18 04/28/17 04:00 98.1 125 20 110/72 96 04/28/17 00:15 19 04/28/17 00:00 97.9 114 19 113/81 96 04/27/17 20:47 97.1 99 19 114/80 97 04/27/17 20:00 18 04/27/17 18:09 98.2 04/27/17 17:18 98.2 04/27/17 17:06 18 04/27/17 16:30 99.3 91 19 122/79 98 04/27/17 16:00 98.2 68 19 123/72 99 Nasal Cannula 3.0 04/27/17 15:46 18 04/27/17 15:30 98.2 67 18 126/76 98 Nasal Cannula 3.0 04/27/17 15:16 20 04/27/17 15:01 20 04/27/17 14:59 69 20 128/80 100 Nasal Cannula 3.0 04/27/17 14:46 20 04/27/17 14:44 69 20 121/76 100 Nasal Cannula 3.0 04/27/17 14:30 66 20 116/69 100 Simple Mask 8.0 04/27/17 14:28 20 04/27/17 14:21 71 20 115/68 100 Simple Mask 8.0 04/27/17 14:16 71 20 120/74 100 Simple Mask 8.0 04/27/17 14:13 72 16 100 04/27/17 14:11 98.6 82 20 134/89 100 Simple Mask 8.0 1/18/18 08:02 98.1 60 18 118/72 98 Room Air Intake and Output 04/27/17 04/28/17 19:00 07:00 Intake Total 1300 ml 625 ml Output Total 400 ml 710 ml Balance 900 ml -85 ml IV Total 1300 ml 625 ml Output Urine Total 200 ml 200 ml Stool Total 50 ml Drainage Total 10 ml Estimated Blood Loss 200 ml Other 450 ml Laboratory Tests 04/28/17 05:10: White Blood Count [Pending], Red Blood Count [Pending], Hemoglobin [Pending], Hematocrit [Pending], Mean Corpuscular Volume [Pending], Mean Corpuscular Hemoglobin [Pending], Mean Corpuscular Hemoglobin Concent [Pending], Red Cell Distribution Width [Pending], Platelet Count [Pending], Mean Platelet Volume [ Pending], Neutrophils (%) (Auto) [Pending], Lymphocytes (%) (Auto) [Pending], Monocytes (%) (Auto) [Pending], Eosinophils (%) (Auto) [Pending], Basophils (%) (Auto) [Pending], Sodium Level [Pending], Potassium Level [Pending], Chloride Level [Pending], Carbon Dioxide Level [Pending], Blood Urea Nitrogen [Pending], Creatinine [Pending], Estimat Glomerular Filtration Rate [Pending], Glucose Level [Pending], Calcium Level [Pending] Height (Feet): 5 Height (Inches): 11.00 Weight (Pounds): 188 Objective WDWN NCAT Supple CTA RRR abd distended, large dressing, (+) LLQ ostomy, (+) stool and bulging of colonic tissue no edema PARIS RAY Apr 28, 2017 08:03
[2017-04-28 08:13] LABS: BASOPHILS % (AUTO) 0.6 % (0.0-2.0); HEMATOCRIT 49.8 % (42.0-52.0); HEMOGLOBIN 16.9 G/DL (14.2-18.0); LYMPHOCYTES % (AUTO) 8.9 % (20.0-45.0); MEAN CORPUSCULAR VOLUME 94 FL (80-99); NEUTROPHILS % (AUTO) 78.5 % (45.0-75.0); PLATELET COUNT 334 K/UL (150-450); RED BLOOD COUNT 5.32 M/UL (4.70-6.10); RED CELL DISTRIBUTION WIDTH 11.6 % (11.6-14.8); WHITE BLOOD COUNT 14.9 K/UL (4.8-10.8)
[2017-04-28] MEDS: Heparin 5000 units/ml inj SUBQ SCH ×2 (08:40→20:05)
[2017-04-28 08:46] VITALS: BP 120/84
--- NOTE | 2017-04-28 10:09 | 48 Hour Post Anesthesia Eval ---
Post Anesthesia Evaluation Procedure: Open Colectomy, Diverting Colostomy, Small Bowel Resection Date of Evaluation: Apr 28, 2017 Time of Evaluation: 10:00 Blood Pressure Systolic: 120 0: 84 Pulse Rate: 101 Respiratory Rate: 20 Temperature (Fahrenheit): 98.7 O2 Sat by Pulse Oximetry: 98 Airway: patent Nausea: No Vomiting: No Pain Intensity: 3 Hydration Status: adequate Cardiopulmonary Status: at baseline Mental Status/LOC: patient returned to baseline Post-Anesthesia Complications: 0 Follow-up care needed: N/A - further care as per primary team NICA BRUMFIELD M.D. Apr 28, 2017 10:09
[2017-04-28 10:20] LABS: ANION GAP 17 mmol/L (5-15); BLOOD UREA NITROGEN 25 mg/dL (7-18); CALCIUM 8.5 MG/DL (8.5-10.1); CARBON DIOXIDE 19 MMOL/L (21-32); CHLORIDE 99 MMOL/L (98-107); CREATININE 1.7 MG/DL (0.55-1.30); POTASSIUM 4.9 MMOL/L (3.5-5.1); SODIUM 135 MMOL/L (136-145)
[2017-04-28] MEDS ORDERED: Chloraseptic Spray 20mL Bottle ORAL PRN ×2 (10:30→10:45)
--- NOTE | 2017-04-28 11:04 | General Progress Note ---
Progress Note Progress Note Surgery: doing a little better today. c/o incision pain. no n/v/f/c. using [facility] HEALTH PROVIDER. liao with urine initially clots but since has cleared up (changed to 3 way liao yesterday evening by myself at bedside to ensure clots cleared). ng tube with bilious output. afebrile, HD stable, labs reviewed. h/h stable. wbc up as anticipated post op abdomen distended, ostomy viable with edema, drain with serosang output POD #1 - recovering NPO IV fluids IV Abx NG tube LIAO MUST STAY IN 2 WEEKs (bladder repair) okay for heparin pt/ot drain care and management. given severity of disease process requiring colon resection, small bowel resection, and bladder repair he is at high risk for possible complications from any of the above. will need to keep a very close eye on him. discussed care with family. all questions answered. Hany Salinas Apr 28, 2017 11:04
[2017-04-28] MEDS ORDERED: Sodium Chloride 500ML 500 ML IV ONE (11:15)
[2017-04-28 11:50] VITALS: BP 136/87
[2017-04-28] MEDS: PCA HYDROmorphone 1mg/ml 30 ML IV PRN (15:10)
[2017-04-28 16:10] VITALS: BP 128/95
--- NOTE | 2017-04-28 16:20 | General Progress Note ---
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 - Other specified disorders of the skin and subcutaneous tissue SNOMED: 227242809 (2) Abdominal pain ICD Codes: R10.9 - Unspecified abdominal pain SNOMED: 05331336 Qualifiers: Qualified Codes: R10.84 - Generalized abdominal pain (3) Bowel obstruction ICD Codes: K56.609 - Unspecified intestinal obstruction, unspecified as to partial versus complete obstruction SNOMED: 44456883 4) S/P colostomy 5) Maximino ? prerenal vs ATN Plan: Continue IV fluid NPO NG to suction Subjective Allergies: Coded Allergies: ACETAMINOPHEN (Verified Allergy, Unknown, 04/23/17) Subjective Still some abdominal pain, creat is up to 1.7, still NG to suction, no c/p or sob Objective Last 24 Hour Vital Signs Date Time Temp Pulse Resp B/P (MAP) Pulse Ox O2 Delivery O2 Flow Rate FiO2 04/28/17 16:10 98.4 94 20 128/95 98 04/28/17 12:04 18 04/28/17 11:50 99.3 99 20 136/87 96 04/28/17 10:09 101 20 98 04/28/17 08:46 98.7 101 20 120/84 98 04/28/17 08:00 19 04/28/17 04:17 18 04/28/17 04:00 98.1 125 20 110/72 96 04/28/17 00:15 19 04/28/17 00:00 97.9 114 19 113/81 96 04/27/17 20:47 97.1 99 19 114/80 97 04/27/17 20:00 18 04/27/17 18:09 98.2 04/27/17 17:18 98.2 04/27/17 17:06 18 04/27/17 16:30 99.3 91 19 122/79 98 Intake and Output 04/27/17 04/28/17 19:00 07:00 Intake Total 1300 ml 625 ml Output Total 400 ml 710 ml Balance 900 ml -85 ml IV Total 1300 ml 625 ml Output Urine Total 200 ml 200 ml Stool Total 50 ml Drainage Total 10 ml Estimated Blood Loss 200 ml Other 450 ml Laboratory Tests 04/28/17 05:10: White Blood Count 14.9H, Red Blood Count 5.32, Hemoglobin 16.9, Hematocrit 49.8 , Mean Corpuscular Volume 94, Mean Corpuscular Hemoglobin 31.7H, Mean Corpuscular Hemoglobin Concent 33.9, Red Cell Distribution Width 11.6, Platelet Count 334, Mean Platelet Volume 7.1, Neutrophils (%) (Auto) 78.5H, Lymphocytes ( %) (Auto) 8.9L, Monocytes (%) (Auto) 12.0H, Eosinophils (%) (Auto) 0.0, Basophils (%) (Auto) 0.6, Sodium Level 135L, Potassium Level 4.9, Chloride Level 99, Carbon Dioxide Level 19L, Anion Gap 17H, Blood Urea Nitrogen 25H, Creatinine 1.7H, Estimat Glomerular Filtration Rate 47.6, Glucose Level 119H, Calcium Level 8.5 Height (Feet): 5 Height (Inches): 11.00 Weight (Pounds): 188 General Appearance: WD/WN, no apparent distress, alert EENT: PERRL/EOMI Neck: non-tender, supple Cardiovascular: normal rate, regular rhythm Respiratory/Chest: lungs clear Abdomen: non tender, soft, hypoactive bowel sounds, other - colostomy in place Extremities: normal range of motion, non-tender 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
[2017-04-28 18:10] LABS: ANION GAP 7 mmol/L (5-15); BLOOD UREA NITROGEN 19 mg/dL (7-18); CALCIUM 8.8 MG/DL (8.5-10.1); CARBON DIOXIDE 27 MMOL/L (21-32); CHLORIDE 101 MMOL/L (98-107); CREATININE 1.2 MG/DL (0.55-1.30); POTASSIUM 4.6 MMOL/L (3.5-5.1); SODIUM 135 MMOL/L (136-145)
[2017-04-28 19:46] LABS: APPEARANCE,URINE CLOUDY; BILIRUBIN, URINE 1+ (NEGATIVE); COLOR,URINE BROWN; GLUCOSE, URINE (UA) NEGATIVE (NEGATIVE); KETONES,URINE 1+ (NEGATIVE); LEUKOCYTE ESTERASE ,URINE 2+ (NEGATIVE); NITRITE,URINE POSITIVE (NEGATIVE); PH,URINE 5 (4.5-8.0); PROTEIN,URINE 3+ (NEGATIVE); UROBILINOGEN,URINE 8 MG/DL (0.0-1.0)
[2017-04-28 20:00] VITALS: BP 136/89
[2017-04-28] MEDS ORDERED: Tubing IV Secondary IV ONE (20:39)
[2017-04-29] VITALS: BP 141/88
[2017-04-29] MEDS: D5 1/2NS w/KCl 20mEq 1,000 ML IV SCH ×3 (02:15→18:41)
[2017-04-29 04:00] VITALS: BP 138/89
--- NOTE | 2017-04-29 04:30 | Operative Note - Dictated ---
DATE OF OPERATION: 04/27/2017 PREOPERATIVE DIAGNOSIS: Large bowel obstruction with possible colovesicular fistula. POSTOPERATIVE DIAGNOSES: 1. Acute on chronic sigmoid diverticulitis. 2. Colovesicular fistula. 3. Coloenteric fistula. OPERATION PERFORMED: 1. Laparoscopy converted to exploratory laparotomy. 2. Small bowel resection. 3. Sigmoid colectomy. 4. Sigmoid colostomy creation. 5. Repair of bladder fistula. ATTENDING SURGEON: Hany Salinas M.D. CNA GNA: None. ANESTHESIOLOGIST: Clay Rosenthal M.D. ANESTHESIA: General ATTENDING AMBULATORY CARE. SPECIMENS: 1. Small bowel. 2. Sigmoid colon with colovesicular fistula tract. COMPLICATIONS: None. CONDITION: Stable. FLUIDS: Please see anesthesia records. ESTIMATED BLOOD LOSS: 150 to 200 mL. DRAINS: A BLANCHE drain left in pelvis. IMPLANTS: No. ANTIBIOTICS: The patient was on scheduled IV antibiotics for acute active inflammatory process prior to entering the operating room. COUNTS: Sponge and needle count correct x2. WOUND CLASSIFICATION: Class III. INDICATIONS FOR PROCEDURE: This is a 32-year-old male, who presented to the emergency department at [facility] complaining of worsening abdominal pain and distention. The patient states that he cannot recall, but approximately last two weeks, he has had some worsening abdominal cramping and within the past 24-48 hours prior to admission, he began to have worsening acute lower abdominal pain with associated nausea. The patient states that for some time now, he has had excessive amounts of bowel gas and has been having significant amount of foul-smelling flatus. The patient stated that approximately a year ago, he had acute abdominal pain and went to an outside facility and was noted to have a UTI, at which time he was treated for. He was given antibiotics and thought he had recovered from that episode. In the past year, he has had some cramping abdominal pain, but has not sought medical attention. The patient does not have insurance and does not have a primary care physician and has been tolerating condition for some time now. In further discussing with the patient, he stated that he cannot recall last time he had a normal bowel movement. He states that he has had some small dark bowel movements over the past few weeks, otherwise, believes he is well, but cannot recall. Upon admission, CT scan was performed and identified an abnormality in the sigmoid colon with some thickening around the bladder. Laboratory data noted a slight leukocytosis. On examination, the patient was distended, tender, but without peritonitis. The patient was admitted for further care and evaluation. He was initially seen by Gastroenterology, who performed a sigmoidoscopy and was able to insert the scope approximately 30 cm, at which point they encountered an area of significant thickening and blockage with a noted ulcer. They were unable to pass this area and took biopsies of the area and around the ulcer. Pathology on those biopsies were negative. Given the patient's history and recent UA, which demonstrated mixed urogenital contaminants, decision made to perform a barium enema. Barium enema was performed and demonstrated a high-grade partial obstructive area around the sigmoid colon, but no identifiable colovesicular fistula was noted on this exam. Over the subsequent days of medical management, the patient's abdominal exam worsened as did his condition with more distention, less passage of flatus and more discomfort. At this time, surgical intervention was indicated and the patient's care was discussed with him and his family in detail. We discussed that no etiology had been defined at this time, but there are multiple possibilities including, but not exclusive to significant diverticular disease, acute on chronic, as well as potential neoplastic disease as well as incidental intussusception or foreign body or other infectious process. We discussed potential of a history of colovesicular fistula as well. I discussed with the patient the possibilities of initially beginning with a diagnostic laparoscopy and possibly, if only diverticular disease, just a laparoscopic left colectomy. We discussed if etiology and findings are more significant than simple diverticular disease, this would necessitate exploration and possible bowel resection as well as creation of an ostomy. The patient expressed understanding and consented to surgery. OPERATIVE NOTE: The patient was taken to the operating room, placed on the operative table in supine position with bilateral arms out. All bony prominences were well padded with gel pads. Preoperative time-out was taken identifying the patient, procedure, operative staff, and surgical staff. SCDs were placed. General anesthesia was induced and the patient was intubated. Following this, the patient was placed in lithotomy position. A Díaz catheter was inserted with standard sterile technique. The abdomen was then clipped, prepped, and draped in standard surgical fashion. We began by making an infraumbilical midline incision using a fresh #11 blade. Incision was carried down to the fascia, which was then elevated and incised. Entry into the abdomen was confirmed visually using open Sg technique without complication. Sg trocar was inserted and the abdomen was insufflated 12 to 15 mmHg. A laparoscope was inserted and the abdomen was inspected. In the left upper quadrant, there were no abnormalities. In the right upper quadrant, there were no abnormalities noted. In the right lower quadrant, there were no abnormalities, but in the left lower quadrant and pelvis, there was a significant amount of dense adhesive tissues with omentum, large bowel, and some small bowel adhesed in the area with omentum draping over most of the intestines. At this time, a secondary trocar was placed in the right lower quadrant under direct visualization. A 5 mm trocar incision site was made in the skin after local anesthetic was infiltrated. A 5 mm trocar was inserted without complication. A laparoscopic grasper was then used and slow blunt dissection of the area of significant inflammatory tissue in the right lower quadrant was performed. Following this, a laparoscopic energy device, Thunderbeat, was used to dissect the omentum off the area of inflammation. The omentum was dissected off and retracted cephalad. When this was completed, we were able to identify the sigmoid colon adhesed to the anterior abdominal wall and the pelvis including the bladder as well as some portions of small bowel. Given the amount of dense fibrinous tissue from likely chronic disease, laparoscopic continuation of the procedure was ill-advised and decision was made to convert to exploration. The laparoscope and trocars were removed under direct visualization. The midline incision was extended inferiorly towards the pubic tubercle and superiorly just around and above the umbilicus. This was done with electrocautery down to the fascia, which was incised in midline and divided. Once the abdomen was entered safely. A Carter retractor was placed and the lateral nur and pelvis were retracted for good visualization. At this time, I was able to identify a significantly distended left colon, sigmoid colon, transverse colon, and right colon down to the cecum. The cecum was approximately almost near 10-15 cm wide. The transverse colon was approximately almost 9-10 cm in diameter as well, as was the sigmoid colon. The large intestine was not only filled with air, but it was also filled with significant amount of stool debris. The ligament of Treitz was identified and the proximal small bowel was noted to be decompressed and normal. As entering towards the distal small bowel, there was a loop of distal ilium, which was looped down into the pelvis and noted to be adhesed to the sigmoid and bladder mass. At this time, we were able to identify a significant amount of dense adhesive tissues within the sigmoid colon, which were dense and fixed to the anterior peritoneum and the dome of the bladder as well as a portion of small bowel. Given the intensity of the dilatation of the large intestine and the loop of adhesed small bowel, which was significantly thickened and dilated as compared to the proximal small bowel, decision was made to proceed with resection rather than just diversion. At this time, the small bowel was freed up from the inflammatory process in the pelvis and in doing so, we were able to identify a large ulcerated area of perforation into the inflammatory mass/sigmoid colon from the small bowel. In evaluating this area, there was a likely or potentially a fistula between the colon and the distal small intestines. At this time, decision was made to proceed with resection of this portion of the small intestine, which was approximately 20-25 cm in length given the area of disease. A window was made in the proximal and distal ends of area of resection until healthy bowel could be identified. A JESSI-55 linear stapler was used to divide the proximal and distal ends of the area marked for transection. The mesentery was then divided using a Thunderbeat energy device and silk sutures as necessary for hemostasis. Once this was complete, the specimen was sent to pathology for review with the area of perforation/fistulization being marked with a silk suture. Following this, the small bowel was reconnected with an end-to-end anastomosis. The small bowel was brought together and appropriately positioned for anastomosis. Stay sutures were placed in the proximal and distal ends using 3-0 silk pop-offs. Once this was complete, two enterotomies were made using electrocautery. The JESSI-55 linear stapler was then entered into the bowel and fired and a [id number] anastomosis was then made. Staple line was evaluated and good hemostasis was noted. The remaining enterotomy was then closed using another linear 55 mm stapler, and the final product was identified and noted to be a satisfactory [id number] ileo-ileal anastomosis with good patency and hemostasis. The mesenteric defect was then closed using a 3-0 Vicryl suture. A few interrupted Lembert sutures were used to invert the staple line. Following this, we turned our attention to the sigmoid colon mass and the colovesicular fistula. There were some questions about potential neoplastic process causing this given the dense amount of tissue noted. There was also the possibility of the significantly chronic nature of this patient's disease process. At this time, biopsies were sent to the pathologist who evaluated with frozen section and did not identify any neoplastic etiology. An area of healthy left colon was identified proximal to the disease portion. It was approximately 8-10 cm if not more in diameter. The white line of Toldt on the left side was divided and the left colon mobilized. A small defect was made in the mesentery, and using a linear 100 mm JESSI stapler, the bowel was divided. Following this, the bowel mesentery was divided distally towards the rectum using the energy device, Thunderbeat, and 2-0 silk ties as necessary. In the area around the invasion of the inflammatory process and fistulization into the bladder, careful dissection was made. At this time, to appropriately resect the fistula tract into the dome of the bladder, a circumferential area was dissected out and the bladder was entered with the Díaz being noted. Following this, the remainder of the sigmoid colon was taken down towards the rectum once it was freed from the bladder fistula and the peritoneal dense adhesions anteriorly. In the lateral aspect, the ureter was identified and tracked towards the iliac vessels towards the trigone of the bladder and protected throughout the procedure. Once the remainder of the sigmoid colon was freed circumferentially down to the rectum, a regular TA 55 stapler was used to divide the sigmoid colon distally at the rectosigmoid junction. The specimen was then removed and sent to pathology for evaluation. Hemostasis was checked and achieved with electrocautery. A 0 Prolene suture was placed at the rectal stump for identification of the rectal stump at a later time when the patient plans takedown. Pathology evaluated the specimen and was able to identify multiple fistulas as well as an intramural hematoma, but fortunately no neoplastic process. Pending final pathology. At this time, the decision made to repair the defect in the bladder in a two-layer fashion. The defect was repaired in two layers beginning with a 2-0 PDS suture in the mucosal layer and the muscular layer followed by a 3-0 Vicryl suture in the serosa and muscular layer. Bladder repair was checked and noted to be satisfactory. Following this, the abdomen was then irrigated with copious amounts of warm normal saline. At this time, given the significant findings and the significant differentials in size between the proximal and distal end of colon incision made and the necessity for a distal small bowel resection and anastomosis, decision was made to proceed with a colostomy and not anastomosis. In the left lower abdomen, a circumferential incision was made in the skin for colostomy site and taken down through the subcutaneous tissue to the fascia. A cruciate incision was made in the fascia and the rectus muscle was divided and the abdomen entered through the posterior rectus sheath and the peritoneum. Once this was complete, two fingerbreadths could be identified to going through the defect. The remainder of the sigmoid colon was then brought through the colostomy site. At this time, the abdomen was inspected, hemostasis noted wound, and decision was made to leave a drain in the pelvis. A 19-Sinhala Jerry drain was placed through the right lower quadrant laparoscopic 5 mm port site. The drain was placed in the pelvis and sutured to the skin using a 2-0 nylon suture. At this time, the abdomen was cleaned and washed out. Anastomoses were inspected and noted to be appropriate and stable. No other abnormalities were noted. The small and large intestines were allowed to lay in an anatomical position followed by a layering of omentum. The stomach was checked and NG tube was noted to be in appropriate positioning. The abdominal fascia was then closed using a #1 looped PDS suture. Following this, the wound was irrigated, and given the chronicity of the patient's disease and cleanliness of the procedure, decision was made to loosely reapproximate the skin incision using surgical skin candelario. Once incision was cared for, it was cleansed and a towel was placed to cover the wound while the colostomy was matured. We then turned our attention to our colostomy for maturation. The prior staple line was excised and hemostasis was obtained with electrocautery. In a circumferential fashion, the mucosa and submucosa were put into the dermis using multiple 3-0 Vicryl interrupted sutures. The colostomy was palpated and noted to be viable and patent. At this time, a colostomy bag was placed followed by abdominal wound dressing, and the case was concluded. The patient tolerated the procedure well, was extubated, and taken to the postanesthetic care unit in stable condition. Operative findings were discussed with the patient's family in detail who expressed understanding and gratitude. Hany Salinas M.D. DR: GIRMA JOB#: [id number] CC: LORRAINE
[2017-04-29] MEDS: Piperacillin/Tazobactam 3.375 GM in NS 110 ML IVPB SCH ×3 (06:02→22:30)
[2017-04-29] MEDS: PCA shift volume MISC SCH ×2 (07:10→19:14)
--- NOTE | 2017-04-29 07:45 | General Progress Note ---
Assessment/Plan Problem List: (1) Bowel obstruction ICD Codes: K56.609 - Unspecified intestinal obstruction, unspecified as to partial versus complete obstruction SNOMED: 88272996 Assessment/Plan Assessment - distal sigmoid obstruction - colovesicular fistula - colointestinal fistula - s/p exlap, resections, and colostomy Recommendations - NPO - IV fluids - Consider PICC line / TPN - abx - surgical f/u - f/u path -pain control Subjective ROS Limited/Unobtainable: Yes Allergies: Coded Allergies: ACETAMINOPHEN (Verified Allergy, Unknown, 04/23/17) Subjective abd pain Objective Last 24 Hour Vital Signs Date Time Temp Pulse Resp B/P (MAP) Pulse Ox O2 Delivery O2 Flow Rate FiO2 04/29/17 04:16 17 04/29/17 04:00 98.6 98 17 138/89 97 Room Air 04/29/17 00:16 18 04/29/17 00:00 98.5 99 18 141/88 97 Nasal Cannula 1.0 04/28/17 20:16 17 04/28/17 20:00 97.9 102 19 136/89 100 04/28/17 16:10 98.4 94 20 128/95 98 04/28/17 16:00 18 04/28/17 16:00 98 Nasal Cannula 3.0 04/28/17 12:04 18 04/28/17 12:00 96 Nasal Cannula 3.0 04/28/17 11:50 99.3 99 20 136/87 96 04/28/17 10:09 101 20 98 04/28/17 08:46 98.7 101 20 120/84 98 04/28/17 08:00 96 Nasal Cannula 3.0 04/28/17 08:00 19 Intake and Output 04/28/17 04/29/17 19:00 07:00 Intake Total 1125 ml 1375 ml Output Total 1090 ml 1420 ml Balance 35 ml -45 ml IV Total 1125 ml 1375 ml Output Urine Total 750 ml 1050 ml Stool Total 100 ml 50 ml Drainage Total 20 ml 20 ml Other 220 ml 300 ml Laboratory Tests 04/28/17 17:14: Sodium Level 135L, Potassium Level 4.6, Chloride Level 101, Carbon Dioxide Level 27, Anion Gap 7, Blood Urea Nitrogen 19H, Creatinine 1.2, Estimat Glomerular Filtration Rate > 60, Glucose Level 104, Calcium Level 8.8 04/28/17 17:30: Urine Color Brown, Urine Appearance Cloudy, Urine pH 5, Urine Specific [place] 1.020, Urine Protein 3+H, Urine Glucose (UA) Negative, Urine Ketones 1+H, Urine Occult Blood 5+H, Urine Nitrite PositiveH, Urine Bilirubin 1+H, Urine Ictotest Positive, Urine Urobilinogen 8H, Urine Leukocyte Esterase 2+H, Urine RBC TntcH, Urine WBC 2-4, Urine Squamous Epithelial Cells None, Urine Amorphous Sediment ModerateH, Urine Bacteria ModerateH 04/29/17 07:04: Sodium Level [Pending], Potassium Level [Pending], Chloride Level [Pending], Carbon Dioxide Level [Pending], Blood Urea Nitrogen [Pending], Creatinine [ Pending], Estimat Glomerular Filtration Rate [Pending], Glucose Level [Pending] , Calcium Level [Pending], White Blood Count [Pending], Red Blood Count [Pending ], Hemoglobin [Pending], Hematocrit [Pending], Mean Corpuscular Volume [Pending] , Mean Corpuscular Hemoglobin [Pending], Mean Corpuscular Hemoglobin Concent [ Pending], Red Cell Distribution Width [Pending], Platelet Count [Pending], Mean Platelet Volume [Pending], Neutrophils (%) (Auto) [Pending], Lymphocytes (%) ( Auto) [Pending], Monocytes (%) (Auto) [Pending], Eosinophils (%) (Auto) [Pending ], Basophils (%) (Auto) [Pending], Phosphorus Level [Pending], Magnesium Level [ Pending], Total Bilirubin [Pending], Aspartate Amino Transf (AST/SGOT) [Pending] , Alanine Aminotransferase (ALT/SGPT) [Pending], Alkaline Phosphatase [Pending] , Total Protein [Pending], Albumin [Pending], Globulin [Pending] Height (Feet): 5 Height (Inches): 11.00 Weight (Pounds): 188 General Appearance: alert EENT: normal ENT inspection Neck: supple Cardiovascular: normal rate Respiratory/Chest: decreased breath sounds Abdomen: hyperactive bowel sounds - and BLANCHE, other - post surgical Extremities: non-tender NATAN NICOLE Apr 29, 2017 07:45
[2017-04-29 07:57] LABS: BASOPHILS % (AUTO) 0.9 % (0.0-2.0); EOSINOPHILS % (AUTO) 1.1 % (0.0-3.0); HEMATOCRIT 39.7 % (42.0-52.0); HEMOGLOBIN 13.9 G/DL (14.2-18.0); LYMPHOCYTES % (AUTO) 13.7 % (20.0-45.0); MEAN CORPUSCULAR VOLUME 92 FL (80-99); MONOCYTES % (AUTO) 8.4 % (1.0-10.0); NEUTROPHILS % (AUTO) 75.9 % (45.0-75.0); PLATELET COUNT 231 K/UL (150-450); RED CELL DISTRIBUTION WIDTH 11.3 % (11.6-14.8); WHITE BLOOD COUNT 12.8 K/UL (4.8-10.8)
[2017-04-29 08:00] VITALS: BP 124/81
[2017-04-29] MEDS: Heparin 5000 units/ml inj SUBQ SCH ×2 (08:37→22:31)
[2017-04-29 08:53] LABS: ALANINE AMINOTRANSFERASE 18 U/L (12-78); ALBUMIN 2.5 G/DL (3.4-5.0); ALBUMIN/GLOBULIN RATIO 0.6 (1.0-2.7); ALKALINE PHOSPHATASE 55 U/L (46-116); ANION GAP 8 mmol/L (5-15); ASPARTATE AMINO TRANSFERASE 31 U/L (15-37); BILIRUBIN,TOTAL 1.2 MG/DL (0.2-1.0); BLOOD UREA NITROGEN 11 mg/dL (7-18); CALCIUM 8.8 MG/DL (8.5-10.1); CARBON DIOXIDE 26 MMOL/L (21-32); CHLORIDE 98 MMOL/L (98-107); CREATININE 0.8 MG/DL (0.55-1.30); PHOSPHORUS 2.4 MG/DL (2.5-4.9); SODIUM 132 MMOL/L (136-145)
[2017-04-29 08:55] LABS: BILIRUBIN,DIRECT 0.4 MG/DL (0.0-0.3)
[2017-04-29 12:00] VITALS: BP 132/94
--- NOTE | 2017-04-29 12:34 | General Progress Note ---
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 - Other specified disorders of the skin and subcutaneous tissue SNOMED: 917168815 (2) Abdominal pain ICD Codes: R10.9 - Unspecified abdominal pain SNOMED: [id number] Qualifiers: Qualified Codes: R10.84 - Generalized abdominal pain (3) Bowel obstruction ICD Codes: K56.609 - Unspecified intestinal obstruction, unspecified as to partial versus complete obstruction SNOMED: 16800051 4) S/P colostomy 5) Maximino improved Plan: Continue IV fluid NPO NG to suction Subjective Allergies: Coded Allergies: ACETAMINOPHEN (Verified Allergy, Unknown, 04/23/17) Subjective Still some abdominal pain, creat is back to baseline, still NG to suction Objective Last 24 Hour Vital Signs Date Time Temp Pulse Resp B/P (MAP) Pulse Ox O2 Delivery O2 Flow Rate FiO2 04/29/17 12:00 19 04/29/17 12:00 98.0 93 17 132/94 98 Room Air 04/29/17 08:00 18 04/29/17 08:00 98.9 92 17 124/81 98 Room Air 04/29/17 04:16 17 04/29/17 04:00 98.6 98 17 138/89 97 Room Air 04/29/17 00:16 18 04/29/17 00:00 98.5 99 18 141/88 97 Nasal Cannula 1.0 04/28/17 20:16 17 04/28/17 20:00 97.9 102 19 136/89 100 04/28/17 16:10 98.4 94 20 128/95 98 04/28/17 16:00 18 04/28/17 16:00 98 Nasal Cannula 3.0 Intake and Output 04/28/17 04/29/17 19:00 07:00 Intake Total 1125 ml 1375 ml Output Total 1090 ml 1370 ml Balance 35 ml 5 ml IV Total 1125 ml 1375 ml Output Urine Total 750 ml 1000 ml Stool Total 100 ml 50 ml Drainage Total 20 ml 20 ml Other 220 ml 300 ml Laboratory Tests 04/28/17 17:14: Sodium Level 135L, Potassium Level 4.6, Chloride Level 101, Carbon Dioxide Level 27, Anion Gap 7, Blood Urea Nitrogen 19H, Creatinine 1.2, Estimat Glomerular Filtration Rate > 60, Glucose Level 104, Calcium Level 8.8 04/28/17 17:30: Urine Color Brown, Urine Appearance Cloudy, Urine pH 5, Urine Specific [place] 1.020, Urine Protein 3+H, Urine Glucose (UA) Negative, Urine Ketones 1+H, Urine Occult Blood 5+H, Urine Nitrite PositiveH, Urine Bilirubin 1+H, Urine Ictotest Positive, Urine Urobilinogen 8H, Urine Leukocyte Esterase 2+H, Urine RBC TntcH, Urine WBC 2-4, Urine Squamous Epithelial Cells None, Urine Amorphous Sediment ModerateH, Urine Bacteria ModerateH 04/29/17 07:04: Sodium Level 132L, Potassium Level 4.0, Chloride Level 98, Carbon Dioxide Level 26, Anion Gap 8, Blood Urea Nitrogen 11, Creatinine 0.8, Estimat Glomerular Filtration Rate > 60, Glucose Level 113H, Calcium Level 8.8, White Blood Count 12.8H, Red Blood Count 4.30L, Hemoglobin 13.9L, Hematocrit 39.7L, Mean Corpuscular Volume 92, Mean Corpuscular Hemoglobin 32.2H, Mean Corpuscular Hemoglobin Concent 34.9, Red Cell Distribution Width 11.3L, Platelet Count 231, Mean Platelet Volume 7.6, Neutrophils (%) (Auto) 75.9H, Lymphocytes (%) (Auto) 13.7L, Monocytes (%) (Auto) 8.4, Eosinophils (%) (Auto) 1.1, Basophils (%) (Auto ) 0.9, Phosphorus Level 2.4L, Magnesium Level 1.9, Total Bilirubin 1.2H, Direct Bilirubin 0.4H, Aspartate Amino Transf (AST/SGOT) 31, Alanine Aminotransferase ( ALT/SGPT) 18, Alkaline Phosphatase 55, Total Protein 6.7, Albumin 2.5L, Globulin 4.2, Albumin/Globulin Ratio 0.6L Height (Feet): 5 Height (Inches): 11.00 Weight (Pounds): 188 General Appearance: WD/WN, no apparent distress EENT: PERRL/EOMI, normal ENT inspection Neck: non-tender, normal alignment Cardiovascular: normal peripheral pulses, normal rate, regular rhythm Respiratory/Chest: chest wall non-tender, lungs clear Abdomen: hypoactive bowel sounds, decreased bowel sounds Extremities: normal range of motion, non-tender 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
--- NOTE | 2017-04-29 13:54 | General Progress Note ---
Progress Note Progress Note Surgery: doing much better. seems more comfortable. pain improving. ambulatory. no n/v /f/c. labs improved. afebrile, HD stable. dressings removed and wound looks clean. ostomy viable, no output yet, edema. BLANCHE with serous output liao with good uop. overall improving. still have to be very careful given history and operative intervention. -NPO IV fluids IV Abx NG tube Liao drain care ostomy care ambulate and oob Rx as written. Hany Salinas Apr 29, 2017 13:54
[2017-04-29] MEDS ORDERED: Rate Change PCA 1 Each MISC PRN (14:00)
[2017-04-29] MEDS ORDERED: DiphenhydrAMINE 50mg/ml Inj IVP PRN (14:30)
[2017-04-29] MEDS ORDERED: LORazepam 1mg tab ORAL PRN (14:30)
[2017-04-29] MEDS ORDERED: PCA HYDROmorphone 1mg/ml 30 ML IV PRN (14:30)
[2017-04-29] MEDS ORDERED: Naloxone 0.4mg/ml Inj IVP PRN (14:30)
[2017-04-29] MEDS: PCA HYDROmorphone 1mg/ml 30 ML IV PRN (15:15)
[2017-04-29 16:00] VITALS: BP 142/85
[2017-04-29 20:32] VITALS: BP 137/82
[2017-04-30] VITALS: BP 117/67
[2017-04-30] MEDS: D5 1/2NS w/KCl 20mEq 1,000 ML IV SCH ×3 (02:04→18:21)
[2017-04-30 04:00] VITALS: BP 128/72
[2017-04-30] MEDS: Piperacillin/Tazobactam 3.375 GM in NS 110 ML IVPB SCH ×3 (05:54→21:42)
[2017-04-30] MEDS: PCA shift volume MISC SCH ×2 (07:00→19:21)
[2017-04-30 08:00] VITALS: BP 119/82
--- NOTE | 2017-04-30 08:26 | General Progress Note ---
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, resections, and colostomy Recommendations - NPO - IV fluids - Consider PICC line / TPN - abx - surgical f/u - f/u path -pain control Subjective ROS Limited/Unobtainable: Yes Allergies: Coded Allergies: ACETAMINOPHEN (Verified Allergy, Unknown, 04/23/17) Subjective abd pain Objective Last 24 Hour Vital Signs Date Time Temp Pulse Resp B/P (MAP) Pulse Ox O2 Delivery O2 Flow Rate FiO2 04/30/17 04:00 98.6 72 17 128/72 98 Room Air 04/30/17 04:00 18 04/30/17 00:00 98.7 87 17 117/67 97 Room Air 04/30/17 00:00 17 04/29/17 20:32 98.4 91 20 137/82 98 04/29/17 20:00 17 04/29/17 16:00 97.5 92 20 142/85 98 Room Air 04/29/17 16:00 97.5 92 20 142/85 98 Room Air 04/29/17 16:00 19 04/29/17 12:00 19 04/29/17 12:00 98.0 93 17 132/94 98 Room Air 04/29/17 12:00 97.9 93 21 132/94 98 Room Air Intake and Output 04/29/17 04/30/17 19:00 07:00 Output Total 1158 ml 538 ml Balance -1158 ml -538 ml Output Urine Total 750 ml 400 ml Stool Total 40 ml 30 ml Drainage Total 18 ml 8 ml Other 350 ml 100 ml Height (Feet): 5 Height (Inches): 11.00 Weight (Pounds): 188 General Appearance: alert EENT: normal ENT inspection Neck: supple Cardiovascular: normal rate Respiratory/Chest: decreased breath sounds Abdomen: other - post surgical Extremities: non-tender NATAN NICOLE Apr 30, 2017 08:26
[2017-04-30 09:15] LABS: ANION GAP 7 mmol/L (5-15); BLOOD UREA NITROGEN 11 mg/dL (7-18); CALCIUM 8.4 MG/DL (8.5-10.1); CARBON DIOXIDE 27 MMOL/L (21-32); CHLORIDE 98 MMOL/L (98-107); CREATININE 0.7 MG/DL (0.55-1.30); POTASSIUM 4.1 MMOL/L (3.5-5.1); SODIUM 132 MMOL/L (136-145)
[2017-04-30] MEDS: Heparin 5000 units/ml inj SUBQ SCH ×2 (09:15→21:46)
[2017-04-30 09:21] LABS: BASOPHILS % (AUTO) 0.9 % (0.0-2.0); HEMATOCRIT 39.3 % (42.0-52.0); HEMOGLOBIN 13.6 G/DL (14.2-18.0); LYMPHOCYTES % (AUTO) 18.3 % (20.0-45.0); MEAN CORPUSCULAR VOLUME 92 FL (80-99); MONOCYTES % (AUTO) 8.1 % (1.0-10.0); NEUTROPHILS % (AUTO) 67.7 % (45.0-75.0); PLATELET COUNT 260 K/UL (150-450); RED BLOOD COUNT 4.26 M/UL (4.70-6.10); RED CELL DISTRIBUTION WIDTH 11.2 % (11.6-14.8); WHITE BLOOD COUNT 10.2 K/UL (4.8-10.8)
[2017-04-30 12:00] VITALS: BP 128/79
--- NOTE | 2017-04-30 13:27 | General Progress Note ---
Progress Note Progress Note Surgery: improving. less pain today. no n/v/f/c. comfortable. ambulatory. taking in lots of ice chips. naseem drain serous, liao clearing up with good uop. afebrile, labs improved. leukocytosis improved. abd soft, mild tender, mild distention but improved. ostomy with edema and viable. midline wound c/d/i -okay to keep midline wound open to air -d/c ng tube -keep liao for another two weeks -ambulate and oob -okay for ice chips. -naseem drain care -ostomy care Hany Salinas Apr 30, 2017 13:27
[2017-04-30] MEDS: PCA HYDROmorphone 1mg/ml 30 ML IV PRN (15:53)
[2017-04-30 16:00] VITALS: BP 127/78
--- NOTE | 2017-04-30 16:57 | General Progress Note ---
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 - Other specified disorders of the skin and subcutaneous tissue SNOMED: 887991386 (2) Abdominal pain ICD Codes: R10.9 - Unspecified abdominal pain SNOMED: 13639163 Qualifiers: Qualified Codes: R10.84 - Generalized abdominal pain (3) Bowel obstruction ICD Codes: K56.609 - Unspecified intestinal obstruction, unspecified as to partial versus complete obstruction SNOMED: 97717953 4) S/P colostomy 5) Maximino improved Plan: Continue IV fluid Will start Po intake soon Subjective Allergies: Coded Allergies: ACETAMINOPHEN (Verified Allergy, Unknown, 04/23/17) Subjective He hs NG out, passed some gas, no c/p or sob Objective Last 24 Hour Vital Signs Date Time Temp Pulse Resp B/P (MAP) Pulse Ox O2 Delivery O2 Flow Rate FiO2 04/30/17 16:00 18 04/30/17 16:00 98.4 78 18 127/78 100 Room Air 04/30/17 12:00 18 04/30/17 12:00 99.6 90 20 128/79 96 Room Air 04/30/17 08:00 17 04/30/17 08:00 98.1 84 18 119/82 94 Room Air 04/30/17 04:00 98.6 72 17 128/72 98 Room Air 04/30/17 04:00 18 04/30/17 00:00 98.7 87 17 117/67 97 Room Air 04/30/17 00:00 17 04/29/17 20:32 98.4 91 20 137/82 98 04/29/17 20:00 17 Intake and Output 04/29/17 04/30/17 19:00 07:00 Output Total 1158 ml 538 ml Balance -1158 ml -538 ml Output Urine Total 750 ml 400 ml Stool Total 40 ml 30 ml Drainage Total 18 ml 8 ml Other 350 ml 100 ml Laboratory Tests 04/30/17 07:20: White Blood Count 10.2, Red Blood Count 4.26L, Hemoglobin 13.6L, Hematocrit 39.3L, Mean Corpuscular Volume 92, Mean Corpuscular Hemoglobin 31.9H, Mean Corpuscular Hemoglobin Concent 34.6, Red Cell Distribution Width 11.2L, Platelet Count 260, Mean Platelet Volume 7.4, Neutrophils (%) (Auto) 67.7, Lymphocytes (%) (Auto) 18.3L, Monocytes (%) (Auto) 8.1, Eosinophils (%) (Auto) 5.0H, Basophils (%) (Auto) 0.9, Sodium Level 132L, Potassium Level 4.1, Chloride Level 98, Carbon Dioxide Level 27, Anion Gap 7, Blood Urea Nitrogen 11 , Creatinine 0.7, Estimat Glomerular Filtration Rate > 60, Glucose Level 88, Calcium Level 8.4L Height (Feet): 5 Height (Inches): 11.00 Weight (Pounds): 188 General Appearance: WD/WN, no apparent distress EENT: PERRL/EOMI Neck: non-tender, normal alignment, supple, normal inspection Cardiovascular: normal rate, regular rhythm, regularly irregular Abdomen: normal bowel sounds, non tender, soft Extremities: normal range of motion 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
[2017-04-30 20:09] VITALS: BP 109/90
[2017-05-01 00:23] VITALS: BP 112/85
[2017-05-01] MEDS: D5 1/2NS w/KCl 20mEq 1,000 ML IV SCH ×3 (02:04→21:16)
[2017-05-01 04:16] VITALS: BP 125/85
[2017-05-01] MEDS: Piperacillin/Tazobactam 3.375 GM in NS 110 ML IVPB SCH ×3 (05:45→21:17)
[2017-05-01] MEDS: PCA shift volume MISC SCH ×2 (07:00→19:35)
[2017-05-01 07:22] LABS: BASOPHILS % (AUTO) 1.1 % (0.0-2.0); EOSINOPHILS % (AUTO) 5.3 % (0.0-3.0); HEMATOCRIT 42.7 % (42.0-52.0); HEMOGLOBIN 14.7 G/DL (14.2-18.0); LYMPHOCYTES % (AUTO) 19.6 % (20.0-45.0); MEAN CORPUSCULAR VOLUME 91 FL (80-99); MONOCYTES % (AUTO) 9.2 % (1.0-10.0); NEUTROPHILS % (AUTO) 64.8 % (45.0-75.0); PLATELET COUNT 370 K/UL (150-450); RED BLOOD COUNT 4.68 M/UL (4.70-6.10); RED CELL DISTRIBUTION WIDTH 11.1 % (11.6-14.8); WHITE BLOOD COUNT 7.6 K/UL (4.8-10.8)
[2017-05-01 07:37] LABS: ALANINE AMINOTRANSFERASE 29 U/L (12-78); ALBUMIN 2.7 G/DL (3.4-5.0); ALBUMIN/GLOBULIN RATIO 0.5 (1.0-2.7); ALKALINE PHOSPHATASE 63 U/L (46-116); ANION GAP 7 mmol/L (5-15); ASPARTATE AMINO TRANSFERASE 30 U/L (15-37); BILIRUBIN,TOTAL 1.1 MG/DL (0.2-1.0); BLOOD UREA NITROGEN 10 mg/dL (7-18); CALCIUM 9.2 MG/DL (8.5-10.1); CARBON DIOXIDE 29 MMOL/L (21-32); CHLORIDE 98 MMOL/L (98-107); CREATININE 0.8 MG/DL (0.55-1.30); POTASSIUM 4.2 MMOL/L (3.5-5.1); SODIUM 134 MMOL/L (136-145)
[2017-05-01 07:38] LABS: BILIRUBIN,DIRECT 0.4 MG/DL (0.0-0.3)
[2017-05-01 08:00] VITALS: BP 125/82
--- NOTE | 2017-05-01 08:30 | Procedure Note ---
DATE OF PROCEDURE: 04/24/2017 PROCEDURE: Flexible sigmoidoscopy with biopsy. SURGEON: Geeta Negro M.D. ANESTHESIA: Please see the separate anesthesiologist notes for details. PRE-ENDOSCOPIC DIAGNOSIS: Abnormal CT scan. POST-ENDOSCOPIC DIAGNOSES: 1. Significant distortion to distal colonic anatomy making procedure difficult. 2. closure of the colonic lumen at approximately 30 cm. 3. Possibly ulcerated nodule in the region of the closure of left colon, status post biopsy. PROCEDURE: The procedure its risks, indications, alternatives and complications were explained. The procedure was initially attempted with a colonoscope and then and EGD scope. The endoscope was advanced into the rectum and advanced to 30 cm. The abnormalities was once again seen. The colon had significant distortion of the anatomy making advancement too difficult. In addition, the colon came to a sudden closure with a twisted appearance. The only mucosal abnormality was seen was a small nodule measuring about 1 to 1.5 centimeters, which appeared to be possibly ulcerated. However, due to the anatomy, visualization was difficult and it was also difficult to biopsy the nodule. Biopsy however was attempted and the specimen was sent to pathology for review. The endoscope was removed. The patient was sent to recovery in good condition. COMPLICATIONS: None. ASSESSMENT: This patient has a definite abnormality in the distal colon, which is appreciable on the imaging studies as well as today's colonoscopy. Biopsies were sent to pathology on an urgent basis and results are reviewed. A clear explanation was not obtained, then imaging studies of bladder or the rectum with a cystogram or limited barium enema to be done to better define the abnormality and the anatomy. Also, we however, the treatment will likely be surgical and a close surgical followup will be needed. RECOMMENDATIONS: Per above discussion and per orders written in the chart. Geeta Negro M.D. DR: MARIAA JOB#: [id number] CC: LORRAINE
[2017-05-01] MEDS: Heparin 5000 units/ml inj SUBQ SCH ×2 (09:50→21:27)
[2017-05-01 12:00] VITALS: BP 135/78
--- NOTE | 2017-05-01 13:55 | General Progress Note ---
Progress Note Progress Note Surgery: doing well. much improved. comfortable. minimal pain. no n/v/f/c. NG removed stool in ostomy bag today. afebrile, HD stable, labs improved. abd soft, nt/nd, ostomy with stool, midline wound c/d/i. recovering very well. -clear liquids today -d/c medical radiation tech -decrease IV fluids -ambulate and OOB -liao to remain! Hany Salinas May 01, 2017 13:55
[2017-05-01] MEDS ORDERED: Morphine Sulfate 2mg/ml Inj IVP PRN (14:00)
[2017-05-01 16:00] VITALS: BP 131/86
[2017-05-01] MEDS ORDERED: Tubing IV Secondary IV ONE (18:46)
[2017-05-01] MEDS ORDERED: NS 500ML ONE (18:46)
[2017-05-01] MEDS ORDERED: NS Irrig 1000ml ONE (18:46)
[2017-05-01] MEDS ORDERED: Sterile Water For Irrig 2000ml IRRIG ONE (18:46)
[2017-05-01 20:16] VITALS: BP 141/87
--- NOTE | 2017-05-01 20:22 | General Progress Note ---
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 - Other specified disorders of the skin and subcutaneous tissue SNOMED: 320687480 (2) Abdominal pain ICD Codes: R10.9 - Unspecified abdominal pain SNOMED: 38707920 Qualifiers: Qualified Codes: R10.84 - Generalized abdominal pain (3) Bowel obstruction ICD Codes: K56.609 - Unspecified intestinal obstruction, unspecified as to partial versus complete obstruction SNOMED: 83375194 4) S/P colostomy 5) Maximino improved Plan: Continue IV fluid continue with slow po intake Subjective Allergies: Coded Allergies: ACETAMINOPHEN (Verified Allergy, Unknown, 04/23/17) Subjective He is on clear liquid now Objective Last 24 Hour Vital Signs Date Time Temp Pulse Resp B/P (MAP) Pulse Ox O2 Delivery O2 Flow Rate FiO2 05/01/17 20:16 98.5 84 20 141/87 100 05/01/17 16:00 98.2 72 17 131/86 97 05/01/17 12:00 98.2 79 18 135/78 98 05/01/17 12:00 18 05/01/17 08:00 98.2 72 18 125/82 97 05/01/17 08:00 18 05/01/17 04:16 98.4 76 18 125/85 98 05/01/17 04:00 18 05/01/17 00:23 98.3 89 18 112/85 98 05/01/17 00:00 17 04/30/17 20:20 17 Intake and Output 04/30/17 05/01/17 19:00 07:00 Intake Total 1250 ml 1375 ml Output Total 990 ml 1558 ml Balance 260 ml -183 ml IV Total 1250 ml 1375 ml Output Urine Total 950 ml 1200 ml Stool Total 30 ml 350 ml Drainage Total 10 ml 8 ml # Voids 1 Laboratory Tests 05/01/17 06:20: White Blood Count 7.6, Red Blood Count 4.68L, Hemoglobin 14.7, Hematocrit 42.7, Mean Corpuscular Volume 91, Mean Corpuscular Hemoglobin 31.4H, Mean Corpuscular Hemoglobin Concent 34.5, Red Cell Distribution Width 11.1L, Platelet Count 370, Mean Platelet Volume 7.0, Neutrophils (%) (Auto) 64.8, Lymphocytes (%) (Auto) 19.6L, Monocytes (%) (Auto) 9.2, Eosinophils (%) (Auto) 5.3H, Basophils (%) ( Auto) 1.1, Sodium Level 134L, Potassium Level 4.2, Chloride Level 98, Carbon Dioxide Level 29, Anion Gap 7, Blood Urea Nitrogen 10, Creatinine 0.8, Estimat Glomerular Filtration Rate > 60, Glucose Level 103, Calcium Level 9.2, Total Bilirubin 1.1H, Direct Bilirubin 0.4H, Aspartate Amino Transf (AST/SGOT) 30, Alanine Aminotransferase (ALT/SGPT) 29, Alkaline Phosphatase 63, Total Protein 7.7, Albumin 2.7L, Globulin 5.0, Albumin/Globulin Ratio 0.5L Height (Feet): 5 Height (Inches): 11.00 Weight (Pounds): 188 General Appearance: WD/WN, no apparent distress, alert EENT: PERRL/EOMI, normal ENT inspection Neck: non-tender, normal alignment Cardiovascular: normal peripheral pulses, normal rate Respiratory/Chest: chest wall non-tender, lungs clear Abdomen: non tender, soft, no organomegaly Extremities: normal range of motion, non-tender 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
[2017-05-01] MEDS: Morphine Sulfate 4mg/ml Inj IVP PRN (21:15)
--- NOTE | 2017-05-01 22:28 | General Progress Note ---
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, resections, and colostomy Recommendations - Diet per surgery - abx - surgical f/u - f/u path Subjective Allergies: Coded Allergies: ACETAMINOPHEN (Verified Allergy, Unknown, 04/23/17) Subjective POD #4 doing well (+) BM in ostomy d/w surgery Objective Last 24 Hour Vital Signs Date Time Temp Pulse Resp B/P (MAP) Pulse Ox O2 Delivery O2 Flow Rate FiO2 05/01/17 20:16 98.5 84 20 141/87 100 05/01/17 16:00 98.2 72 17 131/86 97 05/01/17 12:00 98.2 79 18 135/78 98 05/01/17 12:00 18 05/01/17 08:00 98.2 72 18 125/82 97 05/01/17 08:00 18 05/01/17 04:16 98.4 76 18 125/85 98 05/01/17 04:00 18 05/01/17 00:23 98.3 89 18 112/85 98 05/01/17 00:00 17 Intake and Output 04/30/17 05/01/17 19:00 07:00 Intake Total 1250 ml 1375 ml Output Total 990 ml 1558 ml Balance 260 ml -183 ml IV Total 1250 ml 1375 ml Output Urine Total 950 ml 1200 ml Stool Total 30 ml 350 ml Drainage Total 10 ml 8 ml # Voids 1 Laboratory Tests 05/01/17 06:20: White Blood Count 7.6, Red Blood Count 4.68L, Hemoglobin 14.7, Hematocrit 42.7, Mean Corpuscular Volume 91, Mean Corpuscular Hemoglobin 31.4H, Mean Corpuscular Hemoglobin Concent 34.5, Red Cell Distribution Width 11.1L, Platelet Count 370, Mean Platelet Volume 7.0, Neutrophils (%) (Auto) 64.8, Lymphocytes (%) (Auto) 19.6L, Monocytes (%) (Auto) 9.2, Eosinophils (%) (Auto) 5.3H, Basophils (%) ( Auto) 1.1, Sodium Level 134L, Potassium Level 4.2, Chloride Level 98, Carbon Dioxide Level 29, Anion Gap 7, Blood Urea Nitrogen 10, Creatinine 0.8, Estimat Glomerular Filtration Rate > 60, Glucose Level 103, Calcium Level 9.2, Total Bilirubin 1.1H, Direct Bilirubin 0.4H, Aspartate Amino Transf (AST/SGOT) 30, Alanine Aminotransferase (ALT/SGPT) 29, Alkaline Phosphatase 63, Total Protein 7.7, Albumin 2.7L, Globulin 5.0, Albumin/Globulin Ratio 0.5L Height (Feet): 5 Height (Inches): 11.00 Weight (Pounds): 188 Objective WDWN NCAT Supple CTA RRR abd distended, large dressing, (+) LLQ ostomy, (+) stool (+) BLANCHE no edema PARIS RAY May 01, 2017 22:28
[2017-05-02 00:50] VITALS: BP 126/76
[2017-05-02] MEDS: Morphine Sulfate 4mg/ml Inj IVP PRN ×2 (01:00→10:04)
[2017-05-02 04:42] VITALS: BP 130/74
[2017-05-02] MEDS: Piperacillin/Tazobactam 3.375 GM in NS 110 ML IVPB SCH ×2 (06:03→15:01)
[2017-05-02 08:00] VITALS: BP 123/76
[2017-05-02] MEDS: Heparin 5000 units/ml inj SUBQ SCH ×2 (09:21→20:04)
[2017-05-02 12:00] VITALS: BP 118/75
--- NOTE | 2017-05-02 13:21 | General Progress Note ---
Progress Note Progress Note Surgery: doing well. comfortable. no issues. mild nausea and pain after clears initially but since resolved. no n/v/f/c currently. ambulatory. ostomy viable with stool. wound c/d/i. drain serous. afebrile, HD stable, recovering -keep on clears for today -ambulate and oob -decrease iv fluids -will plan to advance diet tomorrow if continues to do so well -abx, heparin, Hany Stockton May 02, 2017 13:21
[2017-05-02 16:00] VITALS: BP 122/86
[2017-05-02] MEDS: D5 1/2NS w/KCl 20mEq 1,000 ML IV SCH (18:10)
--- NOTE | 2017-05-02 19:57 | General Progress Note ---
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, resections, and colostomy Recommendations - Diet per surgery - abx - surgical f/u - f/u path --> will ask RN to call pathology Subjective Allergies: Coded Allergies: ACETAMINOPHEN (Verified Allergy, Unknown, 04/23/17) Subjective doing well (+) BM in ostomy d/w surgery Objective Last 24 Hour Vital Signs Date Time Temp Pulse Resp B/P (MAP) Pulse Ox O2 Delivery O2 Flow Rate FiO2 05/02/17 16:00 97.2 85 20 122/86 99 Room Air 05/02/17 12:00 98.0 78 18 118/75 99 Room Air 05/02/17 08:00 97.7 73 18 123/76 98 Room Air 05/02/17 04:42 98.2 77 19 130/74 100 05/02/17 00:50 98.4 72 19 126/76 100 05/01/17 20:16 98.5 84 20 141/87 100 Intake and Output 05/01/17 05/02/17 19:00 07:00 Intake Total 200 ml 675 ml Output Total 500 ml 1040 ml Balance -300 ml -365 ml Intake Oral 200 ml IV Total 675 ml Output Urine Total 500 ml 400 ml Stool Total 550 ml Drainage Total 90 ml # Voids 1 Height (Feet): 5 Height (Inches): 11.00 Weight (Pounds): 188 Objective WDWN NCAT Supple CTA RRR abd distended, large dressing, (+) LLQ ostomy, (+) stool (+) BLANCHE no edema PARIS RAY May 02, 2017 19:57
[2017-05-02 20:00] VITALS: BP 121/81
--- NOTE | 2017-05-02 23:45 | Progress Note ---
DATE: 05/02/2017 SUBJECTIVE: The patient is seen postoperative for abdominal surgery. OBJECTIVE: VITAL SIGNS: He is afebrile with stable vital signs. GENERAL: He is ambulating in the room. LUNGS: Clear. HEART: Regular rhythm. ABDOMEN: Soft. Postoperative, he has a colostomy, drain and also has Díaz catheter. EXTREMITIES: No edema. He is alert and oriented. PERTINENT LABORATORY DATA: Most recent white count 7.6 and hemoglobin 14.7. Electrolytes normal. IMPRESSION: Postoperative status after colostomy and enterovesical fistula closure due to diverticular disease. PLAN: Case is discussed with his surgeon. He has been started on clear liquids and continue with the postoperative care. His pain is controlled. Rodo Dockery M.D. DR: Rima JOB#: [id number] CC:
[2017-05-03] VITALS: BP 118/82
[2017-05-03 04:00] VITALS: BP 118/75
[2017-05-03] MEDS: D5 1/2NS w/KCl 20mEq 1,000 ML IV SCH (06:01)
--- NOTE | 2017-05-03 08:05 | General Progress Note ---
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 - Other specified disorders of the skin and subcutaneous tissue SNOMED: 183624303 (2) Abdominal pain ICD Codes: R10.9 - Unspecified abdominal pain SNOMED: 62819613 Qualifiers: Qualified Codes: R10.84 - Generalized abdominal pain (3) Bowel obstruction ICD Codes: K56.609 - Unspecified intestinal obstruction, unspecified as to partial versus complete obstruction SNOMED: 81017188 (4) Diverticulitis large intestine ICD Codes: K57.32 - Diverticulitis of large intestine without perforation or abscess without bleeding SNOMED: 9890508 Assessment/Plan postop care d/w surgeon, on clears Subjective Constitutional: Reports: weakness HEENT: Reports: no symptoms Cardiovascular: Reports: no symptoms Respiratory: Reports: no symptoms Gastrointestinal/Abdominal: Reports: abdominal pain Genitourinary: Reports: no symptoms Neurologic/Psychiatric: Reports: no symptoms Endocrine: Reports: no symptoms Allergies: Coded Allergies: ACETAMINOPHEN (Verified Allergy, Unknown, 04/23/17) Objective Last 24 Hour Vital Signs Date Time Temp Pulse Resp B/P (MAP) Pulse Ox O2 Delivery O2 Flow Rate FiO2 05/03/17 04:00 97.7 64 18 118/75 99 Room Air 05/03/17 00:00 97.8 69 18 118/82 99 Room Air 05/02/17 20:00 98.4 69 18 121/81 99 Room Air 05/02/17 16:00 97.2 85 20 122/86 99 Room Air 05/02/17 12:00 98.0 78 18 118/75 99 Room Air Intake and Output 05/02/17 05/03/17 19:00 07:00 Intake Total 675 ml 660 ml Output Total 30 ml 1750 ml Balance 645 ml -1090 ml Intake Oral 600 ml 360 ml IV Total 75 ml 300 ml Output Urine Total 1050 ml Stool Total 700 ml Drainage Total 30 ml Height (Feet): 5 Height (Inches): 11.00 Weight (Pounds): 188 General Appearance: WD/WN, no apparent distress EENT: PERRL/EOMI Neck: normal alignment Cardiovascular: normal rate, regular rhythm Respiratory/Chest: lungs clear, normal breath sounds Abdomen: other - colostomy, mild distention Edema: no edema noted Arm (L), no edema noted Arm (R), no edema noted Leg (L), no edema noted Leg (R), no edema noted Pedal (L), no edema noted Pedal (R), no edema noted Generalized LISET EASON May 03, 2017 08:05
[2017-05-03 08:48] VITALS: BP 153/81
[2017-05-03] MEDS: Heparin 5000 units/ml inj SUBQ SCH ×2 (09:42→20:17)
[2017-05-03 12:00] VITALS: BP 130/88
--- NOTE | 2017-05-03 16:18 | General Progress Note ---
Progress Note Progress Note Surgery: doing well. no issues. no complaints. pain well controlled. no n/v/f/c. tolerating regular diet. good ostomy output. liao changed to leg bag. afebrile, HD stable, recovering. abd soft, nt/nd bs+ostomy clean diet as tolerated ambulate and OOB ostomy care. d/c planning for tomorrow. d/c instructions given to patient and family in detail at bedside wound care ostomy care instructions. liao leg bag instructions. Hany Salinas May 03, 2017 16:18
[2017-05-03] MEDS: Docusate 100mg cap ORAL SCH (18:11)
[2017-05-03] MEDS: Norco 5mg/325mg tab ORAL PRN (20:02)
[2017-05-03 20:14] VITALS: BP 126/84
--- NOTE | 2017-05-03 21:31 | General Progress Note ---
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8 69 18 118/82 99 Room Air Intake and Output 05/02/17 05/03/17 19:00 07:00 Intake Total 675 ml 660 ml Output Total 30 ml 1750 ml Balance 645 ml -1090 ml Intake Oral 600 ml 360 ml IV Total 75 ml 300 ml Output Urine Total 1050 ml Stool Total 700 ml Drainage Total 30 ml Height (Feet): 5 Height (Inches): 11.00 Weight (Pounds): 188 Objective WDWN NCAT Supple CTA RRR abd distended, large dressing, (+) LLQ ostomy, (+) stool (+) BLANCHE no edema PARIS RAY May 03, 2017 21:31
[2017-05-04 00:46] VITALS: BP 108/84
[2017-05-04 04:00] VITALS: BP 110/80
[2017-05-04] MEDS: Norco 5mg/325mg tab ORAL PRN ×2 (07:07→14:27)
[2017-05-04 08:00] VITALS: BP 113/81
[2017-05-04] MEDS: Heparin 5000 units/ml inj SUBQ SCH (09:00)
[2017-05-04] MEDS: Docusate 100mg cap ORAL SCH (09:19)
--- NOTE | 2017-05-04 11:09 | General Progress Note ---
Progress Note Progress Note Surgery: doing great. no issues. comfortable. afebrile, HD stable, exam benign. good oral intake. good ostomy output. wounds c/d/i. -d/c home today Rx as written follow up in 1 week with me as scheduled d/c instructions given to patient. Hany Salinas May 04, 2017 11:09
[2017-05-04 12:00] VITALS: BP 121/82
[2017-05-04] MEDS ORDERED: NORCO 5-325 TA1 EAC1 ORAL (13:54)
[2017-05-04] MEDS ORDERED: COLACE100 MG ORAL (13:56)
--- NOTE | 2017-05-04 22:07 | General Progress Note ---
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, resections, and colostomy Recommendations - Diet per surgery - abx - surgical f/u Subjective Allergies: Coded Allergies: ACETAMINOPHEN (Verified Allergy, Unknown, 04/23/17) Subjective doing well (+) BM in ostomy tolerating PO d/w pathology no e/o IBD or malignancy Objective Last 24 Hour Vital Signs Date Time Temp Pulse Resp B/P (MAP) Pulse Ox O2 Delivery O2 Flow Rate FiO2 05/04/17 12:00 97.4 76 19 121/82 99 05/04/17 08:00 98.8 74 19 113/81 99 05/04/17 04:00 97.2 60 19 110/80 97 05/04/17 00:46 97.5 61 18 108/84 99 Intake and Output 05/03/17 05/04/17 19:00 07:00 Intake Total 1100 ml 840 ml Output Total 1260 ml Balance -160 ml 840 ml Intake Oral 1100 ml 840 ml Output Urine Total 860 ml Stool Total 400 ml Height (Feet): 5 Height (Inches): 11.00 Weight (Pounds): 188 Objective WDWN NCAT Supple CTA RRR abd distended, large dressing, (+) LLQ ostomy, (+) stool (+) BLANCHE no edema PARIS RAY May 04, 2017 22:07
--- NOTE | 2017-05-04 22:30 | Discharge Summary ---
DATE OF ADMISSION: 04/23/2017 DATE OF DISCHARGE: 05/04/2017 PERTINENT HISTORY: The patient presents with abdominal pain, nausea and vomiting. Abnormal CT and imaging of the abdomen. PERTINENT PHYSICAL FINDINGS: GENERAL: On admission, the patient is alert and oriented. HEENT: Unremarkable. LUNGS: Clear. HEART: Regular rhythm. ABDOMEN: Soft, mildly distended. There are diminished bowel sounds. I am unable to palpate liver or spleen. EXTREMITIES: No edema. COURSE IN THE HOSPITAL: The patient was evaluated and seen by Dr. Negro in GI consultation and Dr. Salinas in Surgical consultation. After evaluating imaging and monitoring his clinical course, he underwent surgery on 04/27/2017 with laparoscopy converted to exploratory laparotomy small-bowel resection, sigmoid colectomy, sigmoid colostomy creation and repair of bladder fistula. The etiology of his problem was acute on chronic sigmoid diverticulitis with colovesical fistula and coloenteric fistula. The patient tolerated the surgery well and postoperatively he was maintained NPO, IV fluids and pain management. Subsequently, postoperative ileus improved and diet was gradually advanced. The patient completed a course of antibiotics. A Díaz catheter was kept in place in view of his a bladder repair. The patient was alert, ambulatory and tolerating diet at the time of discharge. FINAL DIAGNOSES: 1. 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 2. Surgery as noted above. 3. Large bowel obstruction. DISCHARGE DISPOSITION: The patient is discharged home and follow up surgically with Dr. Salinas. DIET: Low residue diet. MEDICATIONS: Pain medicine and stool softeners as prescriptions were given by Dr. Salinas. Rodo Dockery M.D. DR: TOBI JOB#: [id number] CC:
== END 2017-05-04 14:32 | disposition home or self-care (01) | DRG 221 ==
LOC: EMR 11:11 → EDBEDREQ 18:03 → 3E 18:40
DX: K57.20 Diverticulitis of large intestine with perforation and abscess without bleeding (principal); N17.9 Acute kidney failure, unspecified; K56.699 Other intestinal obstruction unspecified as to partial versus complete obstruction; K63.2 Fistula of intestine; K56.0 Paralytic ileus; N32.1 Vesicointestinal fistula; Z53.31 Laparoscopic surgical procedure converted to open procedure; F41.9 Anxiety disorder, unspecified
CPT/HCPCS: 36415; 74019; 74177; 74270; 80048; 80053; 80307; 81001; 81003; 82248; 82378; 83690; 83735; 84100; 84484; 85025; 85610; 85730; 86850; 86900; 86901; 87086; 93005; 94003; 94150; 99285; J2250; J2405; J2710

== ENCOUNTER 2017-05-04 23:00 | Emergency (ER) | payer MEDICAID ==
[~2017-05-04] VITALS: Ht 180.3 cm; Wt 89.8 kg
[~2017-05-04 23:00] MED LIST changes: +COLACE100 MG ORAL; +NORCO 5-325 TA1 EAC1 ORAL
[2017-05-04 23:56] LABS: BILIRUBIN, URINE NEGATIVE (NEGATIVE); GLUCOSE, URINE (UA) NEGATIVE (NEGATIVE); KETONES,URINE 1+ (NEGATIVE); LEUKOCYTE ESTERASE ,URINE 1+ (NEGATIVE); NITRITE,URINE NEGATIVE (NEGATIVE); PH,URINE 6 (4.5-8.0); PROTEIN,URINE NEGATIVE (NEGATIVE); UROBILINOGEN,URINE NORMAL MG/DL (0.0-1.0)
[2017-05-05 00:03] LABS: APPEARANCE,URINE CLEAR; COLOR,URINE YELLOW
--- NOTE | 2017-05-05 00:13 | Emergency Room Report ---
History of Present Illness General Chief Complaint: Male Urogenital Problems Source: Patient Present Illness HPI Is a 32-year-old male who had a recent bowel resection and has colostomy back. Also has a Díaz. Just got discharged from this hospital. He came in with chief complaint of urinary retention. Unable to urinate for 3 hours. Was having urgency and pressure. Was urinate around the Díaz. Now able to urinate through the Díaz. Now pain is better. No other complaint. No trauma. No blood. Allergies: Coded Allergies: ACETAMINOPHEN (Verified Allergy, Unknown, 04/23/17) Patient History Past Medical History: see triage record, old chart reviewed Past Surgical History: other Pertinent Family History: none Social History: Denies: smoking Immunizations: other Reviewed Nursing Documentation: PMH: Agreed, PSxH: Agreed Nursing Documentation-PMH Hx Cardiac Problems: No - colostomy Hx Cancer: No Hx Gastrointestinal Problems: No Hx Neurological Problems: No Review of Systems Eye: Denies: eye pain, blurred vision ENT: Denies: ear pain, nose congestion, throat swelling Respiratory: Denies: cough, shortness of breath Cardiovascular: Denies: chest pain, palpitations Gastrointestinal: Denies: abdominal pain, diarrhea, nausea, vomiting Genitourinary: Reports: retention Musculoskeletal: Denies: back pain, joint pain Skin: Denies: rash Neurological: Denies: headache, numbness Endocrine: Denies: increased thirst, increased urine Hematologic/Lymphatic: Denies: easy bruising All Other Systems: negative except mentioned in HPI Physical Exam Vital Signs Date Time Temp Pulse Resp B/P (MAP) Pulse Ox O2 Delivery O2 Flow Rate FiO2 05/04/17 23:11 97.3 79 12 124/69 99 Room Air vitals normal Sp02 EP Interpretation: reviewed, normal General Appearance: well appearing, no apparent distress, alert Head: normocephalic, atraumatic Eyes: bilateral eye PERRL, bilateral eye EOMI ENT: hearing grossly normal, normal pharynx Neck: full range of motion, supple, no meningismus Respiratory: chest non-tender, lungs clear, normal breath sounds Cardiovascular #1: regular rate, rhythm, no murmur Gastrointestinal: normal bowel sounds, no mass, no organomegaly, no bruit, non- distended, other - Colostomy bag clean Genitourinary: other - Leg bag with a small clot inside. Urine is clear Musculoskeletal: back normal, gait/station normal, normal range of motion Psychiatric: mood/affect normal Skin: warm/dry Medical Decision Making Diagnostic Impression: Primary Impression: Acute urinary retention ER Course Patient with acute urinary retention, clots in the Díaz. It dislodged by itself. Notice of infection. We'll discharge home. will call in antibiotic if urine culture grew out anything. Last Vital Signs Date Time Temp Pulse Resp B/P (MAP) Pulse Ox O2 Delivery O2 Flow Rate FiO2 05/04/17 23:11 97.3 79 12 124/69 99 Room Air Status: improved Disposition: HOME, SELF-CARE Condition: Stable Additional Instructions: Followup your Dr. as scheduled. Return if worse. PRASANTH ARROYO M.D. May 05, 2017 00:13
[2017-05-05 00:20] VITALS: BP 124/69
== END 2017-05-05 00:20 | disposition home or self-care (01) ==
LOC: EMR 23:18
DX: R33.9 Retention of urine, unspecified (principal); Z93.3 Colostomy status; Z88.6 Allergy status to analgesic agent
CPT/HCPCS: 81003; 99283